=== PATIENT | female | born 1940 | race Caucasian/White ===

== ENCOUNTER 2018-02-14 14:51 | Outpatient (CLI) | payer MEDICARE, OTHER ==
[~2018-02-14 14:51] MED LIST: ALPR-624 PO; APIX5TAB3 PO; BUPR150T26 PO; CITA10TA9 PO; FURO-149 PO; GABA-530 PO; HYDR-565 PO; INSU100I25 SQ; IRBE150T51 PO; LEVO100T46 PO; METF500T PO; OXYB5TAB11 PO
[2018-02-14 15:15] LABS: CLARITY,URINE SLIGHTLY CLOUDY (Clear); COLOR,URINE STRAW (Yellow); GLUCOSE, URINE NEGATIVE (Neg); KETONES,URINE NEGATIVE (Neg); LEUKOCYTE ESTERASE ,URINE MODERATE (Neg); NITRITES, URINE NEGATIVE (Neg); OCCULT BLOOD,URINE NEGATIVE (Neg); PROTEIN,URINE NEGATIVE (Neg); UROBILINOGEN,URINE 0.2 E.U/dL (0.2-1.0)
[2018-02-14 15:16] LABS: UA COLLECTION TYPE NON-SPECIFIED
[2018-02-14 15:22] LABS: BACTERIA,URINE 4+ /HPF (Neg); MUCUS STRANDS NONE SEEN /LPF (Neg); RBC,URINE NONE SEEN /HPF (0-2); SQUAMOUS EPITHELIAL CELL,UR FEW /LPF (FEW); TRANSITIONAL EPI CELLS,URINE FEW /HPF; WBC CLUMPS,URINE MODERATE /HPF (NEGATIVE); WBC,URINE 20-30 /HPF (0-4)
== END 2018-02-14 23:59 | disposition home or self-care (01) ==
LOC: LAB SPEC 14:51
PROVIDERS: ATTEND Family Medicine
DX: E11.65 Type 2 diabetes mellitus with hyperglycemia (principal); N39.0 Urinary tract infection, site not specified; I11.0 Hypertensive heart disease with heart failure; I50.9 Heart failure, unspecified
CPT/HCPCS: 81001; 87077; 87088; 87186

== ENCOUNTER 2018-04-09 02:08 | Emergency (ER) | payer MEDICARE, OTHER ==
[~2018-04-09] VITALS: Ht 165.1 cm; Wt 86.4 kg
[2018-04-09 03:42] LABS: CLARITY,URINE CLEAR (Clear); COLOR,URINE YELLOW (Yellow); GLUCOSE, URINE >=1000 mg/dl (Neg); KETONES,URINE NEGATIVE (Neg); LEUKOCYTE ESTERASE ,URINE SMALL (Neg); NITRITES, URINE POSITIVE (Neg); OCCULT BLOOD,URINE TRACE-LYSED (Neg); PH,URINE 6.5 (4.8-8.0); PROTEIN,URINE NEGATIVE (Neg); UROBILINOGEN,URINE 0.2 E.U/dL (0.2-1.0)
[2018-04-09 03:48] LABS: UA COLLECTION TYPE NON-SPECIFIED
[2018-04-09 03:49] LABS: BACTERIA,URINE 4+ /HPF (Neg); SQUAMOUS EPITHELIAL CELL,UR FEW /LPF (FEW); WBC CLUMPS,URINE MANY /HPF (NEGATIVE); WBC,URINE TNTC /HPF (0-4)
[2018-04-09 03:50] LABS: RBC,URINE 0-2 /HPF (0-2)
[2018-04-09] MEDS ORDERED: CefTRIAXone/D5W-Rocephin 1gm 50 ML IV ONE (04:20)
[2018-04-09] MEDS ORDERED: AMOX-422 PO (04:28)
[2018-04-09] MEDS ORDERED: ondansetron/PF 4mg/2ml inj IV ONE (04:35)
[2018-04-09] MEDS ORDERED: morphine 4 MG/ML inj SYRINge IV ONE (04:35)
[2018-04-09 05:28] VITALS: BP 143/86
[2018-04-12] MEDS ORDERED: CEFP100T7 PO (00:29)
== END 2018-04-09 05:34 | disposition home or self-care (01) ==
LOC: ER 02:10
DX: T83.098A Other mechanical complication of other urinary catheter, initial encounter (principal); N39.0 Urinary tract infection, site not specified; I11.0 Hypertensive heart disease with heart failure; I50.9 Heart failure, unspecified; K21.9 Gastro-esophageal reflux disease without esophagitis; E11.9 Type 2 diabetes mellitus without complications; M19.90 Unspecified osteoarthritis, unspecified site; Z90.710 Acquired absence of both cervix and uterus; Z88.8 Allergy status to other drugs, medicaments and biological substances; Z88.6 Allergy status to analgesic agent; Z88.1 Allergy status to other antibiotic agents; Z79.899 Other long term (current) drug therapy; Y92.9 Unspecified place or not applicable
CPT/HCPCS: 51702; 81001; 87077; 87088; 87186; 96365; 96375; 99284; A4315; J0696; J2270; J2405

== ENCOUNTER 2018-06-26 14:40 | Inpatient (IN) | payer MEDICARE, OTHER ==
[~2018-06-26] VITALS: Ht 165.1 cm; Wt 100.0 kg
[~2018-06-26 14:40] MED LIST changes: +CEFP100T7 PO; +HYDR-4353 PO; -HYDR-565 PO
[2018-06-26] MEDS ORDERED: normal saline 1000ML IV soln IVB ONE (15:20)
[2018-06-26 15:55] LABS: BASOPHILS # (AUTO) 0.1 X10'3 (0-0.2); BASOPHILS % (AUTO) 0.4 % (0-1); EOSINOPHILS # (AUTO) 0.3 X10'3 (0-0.9); EOSINOPHILS % (AUTO) 1.9 % (0-6); HEMATOCRIT 56.7 % (35.0-45.0); LYMPHOCYTES # (AUTO) 1.1 X10'3 (1.1-4.8); LYMPHOCYTES % (AUTO) 6.6 % (21-51); MEAN PLATELET VOLUME 8.3 FL (7.4-10.4); MONOCYTES # (AUTO) 0.6 X10'3 (0-0.9); MONOCYTES % (AUTO) 3.7 % (2-12); NEUTROPHILS # (AUTO) 14.3 X10'3 (1.8-7.7); NEUTROPHILS % (AUTO) 87.4 % (42-75); PLATELET COUNT 401 X10'3 (140-440); WHITE BLOOD COUNT 16.3 X10'3 (4.5-11.0)
[2018-06-26 16:04] LABS: HEMOGLOBIN 17.2 g/dl (12.0-16.0); RED BLOOD COUNT 8.38 X10'6 (4.20-5.60)
[2018-06-26 16:06] LABS: MEAN CORPUSCULAR HEMOGLOBIN 20.5 PG (27.0-31.0); MEAN CORPUSCULAR HGB CONC 30.3 % (33.0-36.5); MEAN CORPUSCULAR VOLUME 67.7 FL (78-98); RED CELL DISTRIBUTION WIDTH 21.2 % (11.5-14.5)
[2018-06-26 16:17] LABS: ANISOCYTOSIS 3+; ELLIPTOCYTES 1+; MICROCYTOSIS 2+; PLATELET ESTIMATE NORMAL
[2018-06-26 16:18] LABS: ALANINE AMINOTRANSFERASE 27 U/L (12-78); ALBUMIN 3.2 G/DL (3.4-5.0); ALBUMIN/GLOBULIN RATIO 0.9 (1.1-1.5); ALKALINE PHOSPHATASE 101 IU/L (46-116); ANION GAP 7 (8-16); ASPARTATE AMINO TRANSFERASE 16 U/L (10-37); BILIRUBIN,TOTAL 0.5 MG/DL (0.1-1.0); BLOOD UREA NITROGEN 16 MG/DL (7-18); BUN/CREATININE RATIO 15.4 (6.6-38.0); CALCIUM 8.9 MG/DL (8.5-10.1); CHLORIDE 100 MMOL/L (99-107); CREATININE 1.04 MG/DL (0.40-0.90); ETHANOL < 0.010 GM/DL (0.0-0.010); GLUCOSE 157 MG/DL (70-104); POTASSIUM 4.1 MMOL/L (3.5-5.1); SODIUM 139 MMOL/L (135-145); SPHEROCYTES FEW; TOTAL CARBON DIOXIDE 32.1 MMOL/L (24-32); TOTAL PROTEIN 6.7 G/DL (6.4-8.2); eGFR 51 ML/MIN
[2018-06-26 16:48] LABS: CLARITY,URINE CLEAR (Clear); COLOR,URINE YELLOW (Yellow); GLUCOSE, URINE 100 mg/dl (Neg); KETONES,URINE NEGATIVE (Neg); LEUKOCYTE ESTERASE ,URINE TRACE (Neg); NITRITES, URINE NEGATIVE (Neg); OCCULT BLOOD,URINE LARGE (Neg); PROTEIN,URINE NEGATIVE (Neg); UROBILINOGEN,URINE 0.2 E.U/dL (0.2-1.0)
[2018-06-26 16:49] LABS: UA COLLECTION TYPE OTHER
[2018-06-26 16:53] LABS: BACTERIA,URINE NONE SEEN /HPF (Neg); MUCUS STRANDS NONE SEEN /LPF (Neg); SQUAMOUS EPITHELIAL CELL,UR NONE SEEN /LPF (FEW)
[2018-06-26 17:09] LABS: URINE AMPHETAMINE SCREEN NEGATIVE (Neg); URINE BARBITUATE SCREEN NEGATIVE (Neg); URINE BENZODIAZEPINES SCREEN POSITIVE (Neg); URINE CANNABINOID SCREEN NEGATIVE (Neg); URINE COCAINE SCREEN NEGATIVE (Neg); URINE METHADONE SCREEN NEGATIVE (Neg); URINE OPIATE SCREEN POSITIVE (Neg); URINE PHENCYCLIDINE SCREEN NEGATIVE (Neg)
[2018-06-26] MEDS ORDERED: ONDA8TAB9 PO (17:12)
[2018-06-26] MEDS ORDERED: GABA600T2 PO (17:12)
[2018-06-26] MEDS ORDERED: dextrose ORAL solution 15 GM/59 ML bottle PO PRN ×2 (19:05)
[2018-06-26] MEDS ORDERED: potassium Cl 20 mEq SR tablet PO PRN ×2 (19:05)
[2018-06-26] MEDS ORDERED: MESSAGE TO PHARMACY PO ONE (19:05)
[2018-06-26] MEDS ORDERED: acetaminophen 325mg tablet PO PRN (19:05)
[2018-06-26] MEDS ORDERED: glucagon, human recombinant 1mg kit SUBCUT PRN (19:05)
[2018-06-26] MEDS ORDERED: magnesium 1gm/100ml D5W IVPB 100 ML IV PRN (19:05)
[2018-06-26] MEDS ORDERED: magnesium 4gm in 100ml NS 100 ML IV PRN (19:05)
[2018-06-26] MEDS ORDERED: potassium Cl 40MEQ/NS 500ml 500 ML IV PRN ×2 (19:05)
[2018-06-26] MEDS ORDERED: dextrose 50%-water 50ml dispensing syringe IV PRN ×2 (19:05)
[2018-06-26] MEDS ORDERED: heparin, porcine 5000 units/ml vial SQ SCH (20:00)
[2018-06-26] MEDS: normal saline 1000ml 1,000 ML IV SCH (20:40)
[2018-06-26] MEDS: CefTRIAXone 2gm/D5W 50ml 50 ML IV SCH (20:41)
[2018-06-26] MEDS: apixaban 5mg tablet PO SCH (20:42)
[2018-06-26] MEDS: gabapentin 300mg capsule PO SCH (20:44)
[2018-06-26] MEDS: HYDROcodone/acetaminophen 5mg/325mg tablet PO PRN (20:45)
[2018-06-26 21:00] VITALS: BP 121/82
[2018-06-26] MEDS: insulin glargine (Lantus) pen - multi-dose SQ SCH (21:00)
[2018-06-26] MEDS: ALPRAZolam 0.5mg tablet PO SCH (21:41)
[2018-06-26] MEDS: temazepam 15mg capsule PO PRN (22:05)
[2018-06-27] MEDS: temazepam 15mg capsule PO PRN (00:04)
[2018-06-27] MEDS: HYDROcodone/acetaminophen 5mg/325mg tablet PO PRN ×3 (03:27→22:12)
[2018-06-27] MEDS: ondansetron/PF 4mg/2ml inj IV PRN ×2 (04:20→12:10)
[2018-06-27 06:00] VITALS: BP 141/76
[2018-06-27] MEDS: levoTHYROXINE 100mcg tablet PO SCH (07:34)
[2018-06-27] MEDS: pantoprazole 40mg Tablet.DR PO SCH (07:34)
[2018-06-27] MEDS: gabapentin 300mg capsule PO SCH ×2 (07:35→21:00)
[2018-06-27] MEDS: buPROPion 75mg tablet PO SCH ×2 (07:35→19:42)
[2018-06-27] MEDS: apixaban 5mg tablet PO SCH ×2 (07:35→19:42)
[2018-06-27] MEDS: ALPRAZolam 0.5mg tablet PO SCH ×2 (07:36→19:42)
[2018-06-27] MEDS: losartan 50mg tablet PO SCH (07:36)
[2018-06-27] MEDS: CefTRIAXone 2gm/D5W 50ml 50 ML IV SCH (07:41)
[2018-06-27 07:42] LABS: ALBUMIN 2.9 G/DL (3.4-5.0); ANION GAP 9 (8-16); BLOOD UREA NITROGEN 12 MG/DL (7-18); BUN/CREATININE RATIO 13.8 (6.6-38.0); CALCIUM 8.3 MG/DL (8.5-10.1); CHLORIDE 103 MMOL/L (99-107); CREATININE 0.87 MG/DL (0.40-0.90); GLUCOSE 211 MG/DL (70-104); MAGNESIUM 1.4 MG/DL (1.5-2.4); SODIUM 140 MMOL/L (135-145); TOTAL CARBON DIOXIDE 28.5 MMOL/L (24-32); eGFR 63 ML/MIN
[2018-06-27 07:48] LABS: HEMATOCRIT 52.5 % (35.0-45.0); HEMOGLOBIN 15.8 g/dl (12.0-16.0); MEAN CORPUSCULAR HEMOGLOBIN 20.5 PG (27.0-31.0); MEAN CORPUSCULAR HGB CONC 30.1 % (33.0-36.5); MEAN CORPUSCULAR VOLUME 68.2 FL (78-98); MEAN PLATELET VOLUME 8.5 FL (7.4-10.4); PLATELET COUNT 406 X10'3 (140-440); RED BLOOD COUNT 7.71 X10'6 (4.20-5.60); WHITE BLOOD COUNT 16.4 X10'3 (4.5-11.0)
[2018-06-27] MEDS: K and/or MAG REPLACEMENT MC SCH (08:00)
[2018-06-27 08:14] LABS: TOTAL CELLS COUNTED 100
[2018-06-27 08:15] LABS: ANISOCYTOSIS 3+; HYPOCHROMASIA 2+; MICROCYTOSIS 2+; PLATELET ESTIMATE NORMAL
[2018-06-27 08:16] LABS: ELLIPTOCYTES 1+; TOXIC GRANULATION 1+
[2018-06-27] MEDS: normal saline 1000ml 1,000 ML IV SCH (08:24)
[2018-06-27] MEDS: insulin Lispro (HumaLOG) vial - multi-dose SQ SCH ×3 (09:18→18:58)
[2018-06-27 10:00] VITALS: BP 133/69
[2018-06-27] MEDS: morphine 2 MG/ML inj. syringe IV PRN ×2 (12:09→16:45)
[2018-06-27] MEDS: magnesium Cl slow-release 64mg tablet PO PRN ×2 (12:10→21:05)
[2018-06-27 16:38] LABS: C DIFF ANTIGEN NEGATIVE (NEGATIVE); C DIFF SPECIMEN=DIARRHEA? ACCEPTABLE; C DIFFICILE TOXINS A&B NEGATIVE (Neg)
[2018-06-27 18:00] VITALS: BP 127/74
[2018-06-27] MEDS: insulin glargine (Lantus) pen - multi-dose SQ SCH (21:08)
[2018-06-27 21:30] VITALS: BP 136/76
[2018-06-28] MEDS: morphine 2 MG/ML inj. syringe IV PRN (00:17)
[2018-06-28] MEDS: ondansetron/PF 4mg/2ml inj IV PRN (00:18)
[2018-06-28] MEDS: normal saline 1000ml 1,000 ML IV SCH (01:08)
[2018-06-28] MEDS: HYDROcodone/acetaminophen 5mg/325mg tablet PO PRN ×3 (04:11→16:22)
[2018-06-28 06:00] VITALS: BP 152/77
[2018-06-28] MEDS: K and/or MAG REPLACEMENT MC SCH (08:00)
[2018-06-28] MEDS: nystatin 15 GM powder TP SCH ×3 (08:00→21:37)
[2018-06-28 08:06] LABS: ALBUMIN 2.8 G/DL (3.4-5.0); ANION GAP 8 (8-16); BLOOD UREA NITROGEN 6 MG/DL (7-18); BUN/CREATININE RATIO 7.1 (6.6-38.0); CHLORIDE 103 MMOL/L (99-107); CREATININE 0.85 MG/DL (0.40-0.90); GLUCOSE 162 MG/DL (70-104); MAGNESIUM 1.5 MG/DL (1.5-2.4); POTASSIUM 3.9 MMOL/L (3.5-5.1); SODIUM 139 MMOL/L (135-145); TOTAL CARBON DIOXIDE 28.1 MMOL/L (24-32); eGFR 64 ML/MIN
[2018-06-28 08:38] LABS: HEMOGLOBIN 15.1 g/dl (12.0-16.0)
[2018-06-28 08:59] LABS: MEAN CORPUSCULAR HGB CONC 29.9 % (33.0-36.5); MONOCYTES # (AUTO) 0.3 X10'3 (0-0.9)
[2018-06-28 09:04] LABS: BASOPHILS # (AUTO) 0.3 X10'3 (0-0.2); BASOPHILS % (AUTO) 1.6 % (0-1); EOSINOPHILS # (AUTO) 0.5 X10'3 (0-0.9); HEMATOCRIT 50.5 % (35.0-45.0); LYMPHOCYTES # (AUTO) 1.2 X10'3 (1.1-4.8); LYMPHOCYTES % (AUTO) 7.9 % (21-51); MEAN CORPUSCULAR HEMOGLOBIN 20.6 PG (27.0-31.0); MEAN CORPUSCULAR VOLUME 68.8 FL (78-98); MEAN PLATELET VOLUME 8.3 FL (7.4-10.4); MONOCYTES % (AUTO) 2.1 % (2-12); NEUTROPHILS # (AUTO) 13.3 X10'3 (1.8-7.7); NEUTROPHILS % (AUTO) 85.4 % (42-75); PLATELET COUNT 379 X10'3 (140-440); RED BLOOD COUNT 7.34 X10'6 (4.20-5.60); RED CELL DISTRIBUTION WIDTH 21.5 % (11.5-14.5); WHITE BLOOD COUNT 15.6 X10'3 (4.5-11.0)
[2018-06-28] MEDS: lactobacillus rhamnosus 10,000 MMU CELLS/CAPSULE PO SCH ×2 (09:11→21:20)
[2018-06-28] MEDS: losartan 50mg tablet PO SCH (09:11)
[2018-06-28] MEDS: levoTHYROXINE 100mcg tablet PO SCH (09:12)
[2018-06-28] MEDS: gabapentin 300mg capsule PO SCH ×2 (09:12→21:19)
[2018-06-28] MEDS: apixaban 5mg tablet PO SCH ×2 (09:12→21:20)
[2018-06-28] MEDS: buPROPion 75mg tablet PO SCH ×2 (09:12→21:20)
[2018-06-28] MEDS: ALPRAZolam 0.5mg tablet PO SCH ×2 (09:12→21:19)
[2018-06-28] MEDS: pantoprazole 40mg Tablet.DR PO SCH (09:14)
[2018-06-28] MEDS: insulin Lispro (HumaLOG) vial - multi-dose SQ SCH ×3 (09:54→18:55)
[2018-06-28 10:00] VITALS: BP 162/89
[2018-06-28 10:08] LABS: HYPOCHROMASIA 2+; LARGE PLATELETS FEW; PLATELET ESTIMATE NORMAL
[2018-06-28 10:09] LABS: ANISOCYTOSIS 3+; MICROCYTOSIS 2+; SPHEROCYTES FEW
[2018-06-28 10:10] LABS: ELLIPTOCYTES 1+; POLYCHROMASIA FEW; TEAR DROP CELLS FEW
[2018-06-28] MEDS: cefepime 1GM/NS ADD-VANTAGE 100 ML IV SCH ×3 (10:20→23:58)
[2018-06-28 18:00] VITALS: BP 114/66
[2018-06-28] MEDS: insulin glargine (Lantus) pen - multi-dose SQ SCH (21:28)
[2018-06-28] MEDS: temazepam 15mg capsule PO PRN (21:32)
[2018-06-28 22:00] VITALS: BP 111/74
[2018-06-29 06:00] VITALS: BP 159/78
[2018-06-29] MEDS: HYDROcodone/acetaminophen 5mg/325mg tablet PO PRN ×2 (06:15→12:13)
[2018-06-29 06:49] LABS: BASOPHILS # (AUTO) 0.1 X10'3 (0-0.2); BASOPHILS % (AUTO) 0.7 % (0-1); EOSINOPHILS # (AUTO) 0.5 X10'3 (0-0.9); EOSINOPHILS % (AUTO) 2.5 % (0-6); HEMATOCRIT 52.1 % (35.0-45.0); HEMOGLOBIN 15.5 g/dl (12.0-16.0); LYMPHOCYTES # (AUTO) 0.8 X10'3 (1.1-4.8); LYMPHOCYTES % (AUTO) 4.6 % (21-51); MEAN CORPUSCULAR HEMOGLOBIN 20.4 PG (27.0-31.0); MEAN CORPUSCULAR HGB CONC 29.8 % (33.0-36.5); MEAN CORPUSCULAR VOLUME 68.7 FL (78-98); MEAN PLATELET VOLUME 8.2 FL (7.4-10.4); MONOCYTES # (AUTO) 0.5 X10'3 (0-0.9); MONOCYTES % (AUTO) 2.6 % (2-12); NEUTROPHILS % (AUTO) 89.6 % (42-75); PLATELET COUNT 420 X10'3 (140-440); RED BLOOD COUNT 7.59 X10'6 (4.20-5.60); RED CELL DISTRIBUTION WIDTH 21.6 % (11.5-14.5); WHITE BLOOD COUNT 17.8 X10'3 (4.5-11.0)
[2018-06-29 07:23] LABS: ALBUMIN 2.7 G/DL (3.4-5.0); ANION GAP 10 (8-16); BLOOD UREA NITROGEN 6 MG/DL (7-18); BUN/CREATININE RATIO 6.2 (6.6-38.0); CALCIUM 8.4 MG/DL (8.5-10.1); CHLORIDE 104 MMOL/L (99-107); CREATININE 0.97 MG/DL (0.40-0.90); GLUCOSE 120 MG/DL (70-104); MAGNESIUM 1.4 MG/DL (1.5-2.4); POTASSIUM 3.8 MMOL/L (3.5-5.1); SODIUM 142 MMOL/L (135-145); TOTAL CARBON DIOXIDE 28.2 MMOL/L (24-32); eGFR 55 ML/MIN
[2018-06-29] MEDS: K and/or MAG REPLACEMENT MC SCH (07:47)
[2018-06-29] MEDS: buPROPion 75mg tablet PO SCH ×2 (07:52→20:55)
[2018-06-29] MEDS: pantoprazole 40mg Tablet.DR PO SCH (07:54)
[2018-06-29] MEDS: levoTHYROXINE 100mcg tablet PO SCH (07:54)
[2018-06-29] MEDS: losartan 50mg tablet PO SCH (07:54)
[2018-06-29] MEDS: ALPRAZolam 0.5mg tablet PO SCH ×2 (07:55→20:55)
[2018-06-29] MEDS: gabapentin 300mg capsule PO SCH ×2 (07:55→20:57)
[2018-06-29] MEDS: lactobacillus rhamnosus 10,000 MMU CELLS/CAPSULE PO SCH ×2 (07:55→20:56)
[2018-06-29] MEDS: apixaban 5mg tablet PO SCH ×2 (07:55→20:56)
[2018-06-29] MEDS: cefepime 1GM/NS ADD-VANTAGE 100 ML IV SCH (07:57)
[2018-06-29] MEDS: nystatin 15 GM powder TP SCH ×3 (08:07→21:00)
[2018-06-29] MEDS: insulin Lispro (HumaLOG) vial - multi-dose SQ SCH ×3 (08:38→18:59)
[2018-06-29] MEDS: magnesium Cl slow-release 64mg tablet PO PRN ×2 (08:42→12:13)
[2018-06-29 09:37] LABS: ANISOCYTOSIS 3+; LARGE PLATELETS FEW; MICROCYTOSIS 2+; PLATELET ESTIMATE NORMAL
[2018-06-29 10:00] VITALS: BP 106/52
[2018-06-29] MEDS: piperacillin/tazo 4.5gm/100ml 100 ML IV SCH (16:05)
[2018-06-29 18:30] VITALS: BP 145/84
[2018-06-29] MEDS: insulin glargine (Lantus) pen - multi-dose SQ SCH (20:54)
[2018-06-29] MEDS: temazepam 15mg capsule PO PRN (21:01)
[2018-06-29 22:06] VITALS: BP 150/86
[2018-06-30] MEDS: HYDROcodone/acetaminophen 5mg/325mg tablet PO PRN ×2 (04:29→08:35)
[2018-06-30 05:17] LABS: BASOPHILS # (AUTO) 0.1 X10'3 (0-0.2); BASOPHILS % (AUTO) 0.9 % (0-1); EOSINOPHILS # (AUTO) 0.4 X10'3 (0-0.9); EOSINOPHILS % (AUTO) 2.7 % (0-6); HEMOGLOBIN 15.7 g/dl (12.0-16.0); LYMPHOCYTES # (AUTO) 0.9 X10'3 (1.1-4.8); LYMPHOCYTES % (AUTO) 6.5 % (21-51); MEAN CORPUSCULAR HEMOGLOBIN 20.7 PG (27.0-31.0); MEAN CORPUSCULAR HGB CONC 30.2 % (33.0-36.5); MEAN CORPUSCULAR VOLUME 68.7 FL (78-98); MEAN PLATELET VOLUME 8.2 FL (7.4-10.4); MONOCYTES # (AUTO) 0.5 X10'3 (0-0.9); MONOCYTES % (AUTO) 3.7 % (2-12); NEUTROPHILS # (AUTO) 12.4 X10'3 (1.8-7.7); NEUTROPHILS % (AUTO) 86.2 % (42-75); PLATELET COUNT 365 X10'3 (140-440); RED BLOOD COUNT 7.58 X10'6 (4.20-5.60); RED CELL DISTRIBUTION WIDTH 22.1 % (11.5-14.5); WHITE BLOOD COUNT 14.4 X10'3 (4.5-11.0)
[2018-06-30 05:28] LABS: ALBUMIN 2.7 G/DL (3.4-5.0); ANION GAP 12 (8-16); BLOOD UREA NITROGEN 7 MG/DL (7-18); BUN/CREATININE RATIO 7.8 (6.6-38.0); CALCIUM 8.4 MG/DL (8.5-10.1); CHLORIDE 104 MMOL/L (99-107); GLUCOSE 144 MG/DL (70-104); MAGNESIUM 1.4 MG/DL (1.5-2.4); POTASSIUM 3.6 MMOL/L (3.5-5.1); SODIUM 142 MMOL/L (135-145); TOTAL CARBON DIOXIDE 26.2 MMOL/L (24-32); eGFR 60 ML/MIN
[2018-06-30 05:42] LABS: ANISOCYTOSIS 3+; LARGE PLATELETS FEW; PLATELET ESTIMATE NORMAL
[2018-06-30 05:43] LABS: MICROCYTOSIS 2+; SPHEROCYTES FEW
[2018-06-30 06:00] VITALS: BP 152/84
[2018-06-30] MEDS ORDERED: potassium Cl 20 mEq SR tablet PO PRN ×2 (07:05)
[2018-06-30] MEDS ORDERED: magnesium 4gm in 100ml NS 100 ML IV PRN (07:05)
[2018-06-30] MEDS ORDERED: magnesium 1gm/100ml D5W IVPB 100 ML IV PRN (07:05)
[2018-06-30] MEDS ORDERED: potassium Cl 40MEQ/NS 500ml 500 ML IV PRN ×2 (07:05)
[2018-06-30] MEDS: K and/or MAG REPLACEMENT MC SCH (08:00)
[2018-06-30] MEDS ORDERED: K and/or MAG REPLACEMENT MC SCH (08:00)
[2018-06-30] MEDS: ALPRAZolam 0.5mg tablet PO SCH (08:19)
[2018-06-30] MEDS: buPROPion 75mg tablet PO SCH (08:20)
[2018-06-30] MEDS: levoTHYROXINE 100mcg tablet PO SCH (08:21)
[2018-06-30] MEDS: gabapentin 300mg capsule PO SCH (08:22)
[2018-06-30] MEDS: apixaban 5mg tablet PO SCH (08:22)
[2018-06-30] MEDS: losartan 50mg tablet PO SCH (08:23)
[2018-06-30] MEDS: lactobacillus rhamnosus 10,000 MMU CELLS/CAPSULE PO SCH (08:23)
[2018-06-30] MEDS: piperacillin/tazo 4.5gm/100ml 100 ML IV SCH ×2 (08:24)
[2018-06-30] MEDS: pantoprazole 40mg Tablet.DR PO SCH (08:24)
[2018-06-30] MEDS: nystatin 15 GM powder TP SCH ×2 (08:24→12:43)
[2018-06-30] MEDS: magnesium Cl slow-release 64mg tablet PO PRN ×2 (08:34→13:50)
[2018-06-30] MEDS: insulin Lispro (HumaLOG) vial - multi-dose SQ SCH ×2 (09:21→13:47)
[2018-06-30 10:00] VITALS: BP 142/96
== END 2018-06-30 14:45 | DRG 698 ==
LOC: ER 14:41 → ED HOLD 19:04 → ORTHO 4S 20:19
PROVIDERS: ADMIT Internal Medicine; ATTEND Internal Medicine
PROC: 02HV33Z Insertion of Infusion Device into Superior Vena Cava, Percutaneous Approach (ICD-10-PCS; principal; 2018-06-29)
PROC: B548ZZA Ultrasonography of Superior Vena Cava, Guidance (ICD-10-PCS; 2018-06-29)
DX: T83.518A Infection and inflammatory reaction due to other urinary catheter, initial encounter (principal); G93.41 Metabolic encephalopathy; N17.9 Acute kidney failure, unspecified; N39.0 Urinary tract infection, site not specified; E11.9 Type 2 diabetes mellitus without complications; E03.9 Hypothyroidism, unspecified; E86.0 Dehydration; F03.90 Unspecified dementia, unspecified severity, without behavioral disturbance, psychotic disturbance, mood disturbance, and anxiety; I11.0 Hypertensive heart disease with heart failure; I50.9 Heart failure, unspecified; K21.9 Gastro-esophageal reflux disease without esophagitis; R32 Unspecified urinary incontinence; E83.42 Hypomagnesemia; B96.5 Pseudomonas (aeruginosa) (mallei) (pseudomallei) as the cause of diseases classified elsewhere; F32.9 Major depressive disorder, single episode, unspecified; Y84.6 Urinary catheterization as the cause of abnormal reaction of the patient, or of later complication, without mention of misadventure at the time of the procedure; F41.9 Anxiety disorder, unspecified; M19.90 Unspecified osteoarthritis, unspecified site; Z90.710 Acquired absence of both cervix and uterus; Z74.01 Bed confinement status; Z88.8 Allergy status to other drugs, medicaments and biological substances; Z88.1 Allergy status to other antibiotic agents; Z91.018 Allergy to other foods; Z79.4 Long term (current) use of insulin; Z79.01 Long term (current) use of anticoagulants; Z79.899 Other long term (current) drug therapy; Z79.84 Long term (current) use of oral hypoglycemic drugs; Z86.718 Personal history of other venous thrombosis and embolism; Z86.711 Personal history of pulmonary embolism; Z87.440 Personal history of urinary (tract) infections; Z86.73 Personal history of transient ischemic attack (TIA), and cerebral infarction without residual deficits; Z82.0 Family history of epilepsy and other diseases of the nervous system; Z82.49 Family history of ischemic heart disease and other diseases of the circulatory system; Z80.9 Family history of malignant neoplasm, unspecified; Z80.0 Family history of malignant neoplasm of digestive organs; Y92.89 Other specified places as the place of occurrence of the external cause
CPT/HCPCS: 36415; 36569; 70450; 71045; 76937; 80048; 80053; 80305; 80320; 81001; 82140; 82948; 83036; 83605; 83735; 85025; 87040; 87070; 87077; 87088; 87186; 87324; 87449; 93005; 96360; 96361; 97110; 97116; 97162; 97530; 99285; G0378; J0692; J0696; J1815; J2270; J2405; J2543; J7030

== ENCOUNTER 2018-07-16 09:00 | Emergency (ER) | payer MEDICARE, OTHER ==
[~2018-07-16] VITALS: Ht 165.1 cm; Wt 90.9 kg
[~2018-07-16 09:00] MED LIST changes: -CEFP100T7 PO; -CITA10TA9 PO; -GABA-530 PO; +GABA600T2 PO; -IRBE150T51 PO; -METF500T PO; +ONDA8TAB9 PO; -OXYB5TAB11 PO
[2018-07-16 10:38] LABS: BASOPHILS # (AUTO) 0.1 X10'3 (0-0.2); BASOPHILS % (AUTO) 0.5 % (0-1); EOSINOPHILS # (AUTO) 0.4 X10'3 (0-0.9); HEMOGLOBIN 16.9 g/dl (12.0-16.0); LYMPHOCYTES % (AUTO) 8.1 % (21-51); MONOCYTES # (AUTO) 0.4 X10'3 (0-0.9); MONOCYTES % (AUTO) 3.3 % (2-12); NEUTROPHILS # (AUTO) 10.2 X10'3 (1.8-7.7); NEUTROPHILS % (AUTO) 85.1 % (42-75)
[2018-07-16 10:42] LABS: ALANINE AMINOTRANSFERASE 21 U/L (12-78); ALBUMIN 3.2 G/DL (3.4-5.0); ALKALINE PHOSPHATASE 83 IU/L (46-116); ANION GAP 7 (8-16); ASPARTATE AMINO TRANSFERASE 19 U/L (10-37); BILIRUBIN,TOTAL 0.4 MG/DL (0.1-1.0); BLOOD UREA NITROGEN 9 MG/DL (7-18); BUN/CREATININE RATIO 9.8 (6.6-38.0); CALCIUM 8.6 MG/DL (8.5-10.1); CHLORIDE 101 MMOL/L (99-107); CREATININE 0.92 MG/DL (0.40-0.90); GLUCOSE 118 MG/DL (70-104); SODIUM 137 MMOL/L (135-145); TOTAL CARBON DIOXIDE 28.6 MMOL/L (24-32); TOTAL PROTEIN 6.5 G/DL (6.4-8.2); eGFR 59 ML/MIN
[2018-07-16 10:48] LABS: HEMATOCRIT 55.2 % (35.0-45.0); MEAN CORPUSCULAR HEMOGLOBIN 20.8 PG (27.0-31.0); MEAN CORPUSCULAR HGB CONC 30.5 % (33.0-36.5); MEAN CORPUSCULAR VOLUME 68.3 FL (78-98); MEAN PLATELET VOLUME 8.1 FL (7.4-10.4); PLATELET COUNT 393 X10'3 (140-440); RED BLOOD COUNT 8.09 X10'6 (4.20-5.60); RED CELL DISTRIBUTION WIDTH 21.8 % (11.5-14.5); WHITE BLOOD COUNT 11.6 X10'3 (4.5-11.0)
[2018-07-16 11:05] LABS: CLARITY,URINE CLEAR (Clear); COLOR,URINE STRAW (Yellow); GLUCOSE, URINE NEGATIVE (Neg); KETONES,URINE NEGATIVE (Neg); LEUKOCYTE ESTERASE ,URINE SMALL (Neg); NITRITES, URINE NEGATIVE (Neg); OCCULT BLOOD,URINE NEGATIVE (Neg); PH,URINE 7.5 (4.8-8.0); PROTEIN,URINE NEGATIVE (Neg); UROBILINOGEN,URINE 0.2 E.U/dL (0.2-1.0)
[2018-07-16 11:06] LABS: UA COLLECTION TYPE OTHER
[2018-07-16 11:13] LABS: BACTERIA,URINE FEW /HPF (Neg); MUCUS STRANDS FEW /LPF (Neg); RBC,URINE 0-2 /HPF (0-2); SQUAMOUS EPITHELIAL CELL,UR FEW /LPF (FEW); WBC,URINE 0-4 /HPF (0-4)
[2018-07-16 11:30] VITALS: BP 156/87
== END 2018-07-16 13:10 | disposition home or self-care (01) ==
LOC: ER 09:01
DX: N39.0 Urinary tract infection, site not specified (principal); I11.0 Hypertensive heart disease with heart failure; I50.9 Heart failure, unspecified; K21.9 Gastro-esophageal reflux disease without esophagitis; E11.9 Type 2 diabetes mellitus without complications; Z86.718 Personal history of other venous thrombosis and embolism; Z90.710 Acquired absence of both cervix and uterus; Z88.1 Allergy status to other antibiotic agents; Z88.8 Allergy status to other drugs, medicaments and biological substances; Z79.01 Long term (current) use of anticoagulants; Z79.4 Long term (current) use of insulin; Z79.899 Other long term (current) drug therapy
CPT/HCPCS: 36415; 80053; 81001; 85025; 87077; 87088; 87186; 99284

== ENCOUNTER 2019-01-19 14:57 | Emergency (ER) | payer MEDICARE ==
[~2019-01-19] VITALS: Ht 165.1 cm; Wt 88.6 kg
[~2019-01-19 14:57] MED LIST changes: +GABA600T13 PO; -GABA600T2 PO
[2019-01-19] MEDS ORDERED: morphine 2 MG/ML inj. syringe IV ONE (15:45)
[2019-01-19] MEDS ORDERED: ondansetron/PF 4mg/2ml inj IV ONE (15:45)
[2019-01-19] MEDS ORDERED: LORazepam 2 mg/ml vial IV ONE (15:45)
--- NOTE | 2019-01-19 15:58 | NUR ---
SPOKE WITH HOME HEALTH NURSE FROM [facility] ANJELICA CAMPOS. [phone]. ANJELICA STATES, PTS SON SAID CATHETER WASNT DRAINING AND URINE COMING OUT URETHRA. NURSE SAW PT TODAY AND WHEN SHE IRRIGATED CATH IT WOULD COME OUT OF URETHRA. TRIED TO REMOVE CATHETER TO CHANGE IT UNABLE TO REMOVE CATH. THINKS CATHETER MAYBE IN URETHRA. CATHETER WAS CHANGED LAST WEEK WITH NO PROBLEM.
--- NOTE | 2019-01-19 16:04 | NUR ---
DAUGHTER CHANELL GRAVES [phone]
[2019-01-19 16:31] LABS: BASOPHILS % (AUTO) 0.3 % (0-1); EOSINOPHILS # (AUTO) 0.5 X10'3 (0-0.9); EOSINOPHILS % (AUTO) 3.7 % (0-6); HEMATOCRIT 51.3 % (35.0-45.0); HEMOGLOBIN 15.8 g/dl (12.0-16.0); LYMPHOCYTES # (AUTO) 1.6 X10'3 (1.1-4.8); LYMPHOCYTES % (AUTO) 11.4 % (21-51); MEAN CORPUSCULAR HEMOGLOBIN 20.3 PG (27.0-31.0); MEAN CORPUSCULAR HGB CONC 30.8 g/dL (33.0-36.5); MEAN CORPUSCULAR VOLUME 65.8 FL (78-98); MEAN PLATELET VOLUME 8.5 FL (7.4-10.4); MONOCYTES # (AUTO) 0.5 X10'3 (0-0.9); MONOCYTES % (AUTO) 3.6 % (2-12); NEUTROPHILS # (AUTO) 11.7 X10'3 (1.8-7.7); PLATELET COUNT 457 X10'3 (140-440); RED CELL DISTRIBUTION WIDTH 22.3 % (11.5-14.5); WHITE BLOOD COUNT 14.4 X10'3 (4.5-11.0)
[2019-01-19 16:47] LABS: ALANINE AMINOTRANSFERASE 24 U/L (12-78); ALBUMIN 3.1 G/DL (3.4-5.0); ALKALINE PHOSPHATASE 97 IU/L (46-116); ANION GAP 5 (8-16); ASPARTATE AMINO TRANSFERASE 22 U/L (10-37); BILIRUBIN,TOTAL 0.6 MG/DL (0.1-1.0); BLOOD UREA NITROGEN 11 MG/DL (7-18); BUN/CREATININE RATIO 12.4 (6.6-38.0); CALCIUM 8.5 MG/DL (8.5-10.1); CHLORIDE 101 MMOL/L (99-107); CREATININE 0.89 MG/DL (0.40-0.90); GLUCOSE 202 MG/DL (70-104); POTASSIUM 3.9 MMOL/L (3.5-5.1); SODIUM 134 MMOL/L (135-145); TOTAL CARBON DIOXIDE 28.2 MMOL/L (24-32); TOTAL PROTEIN 6.3 G/DL (6.4-8.2); eGFR 61 ML/MIN
[2019-01-19 17:10] LABS: ANISOCYTOSIS 3+; ELLIPTOCYTES 1+; LARGE PLATELETS FEW; MICROCYTOSIS 2+; PLATELET ESTIMATE INCREASED; POLYCHROMASIA FEW
--- NOTE | 2019-01-19 17:18 | NUR ---
TRISTAN CATH PLACED 14FR COUDE. SCANT AMOUNT OF URINE RETURN. PT TOLERATED WELL.
[2019-01-19] MEDS ORDERED: SULF1TAB49 PO (17:38)
--- NOTE | 2019-01-19 17:56 | NUR ---
BG 179
--- NOTE | 2019-01-19 18:11 | NUR ---
PT DRANK 750ML OF WATER. TOLERATED WELL.
--- NOTE | 2019-01-19 18:17 | NUR ---
called the daughter jose,lucio is talking with her now
[2019-01-19 19:10] VITALS: BP 145/93
== END 2019-01-19 19:11 | disposition home or self-care (01) ==
LOC: ER 14:57
DX: T83.010A Breakdown (mechanical) of cystostomy catheter, initial encounter (principal); I11.0 Hypertensive heart disease with heart failure; I50.9 Heart failure, unspecified; K21.9 Gastro-esophageal reflux disease without esophagitis; E11.9 Type 2 diabetes mellitus without complications; M19.90 Unspecified osteoarthritis, unspecified site; Z86.718 Personal history of other venous thrombosis and embolism; Z90.710 Acquired absence of both cervix and uterus; Z88.8 Allergy status to other drugs, medicaments and biological substances; Z88.5 Allergy status to narcotic agent; Z88.6 Allergy status to analgesic agent; Z79.4 Long term (current) use of insulin; Y92.89 Other specified places as the place of occurrence of the external cause
CPT/HCPCS: 36415; 51702; 80053; 82948; 85025; 96374; 96375; 99285; J2060; J2270; J2405

== ENCOUNTER 2019-03-23 18:29 | Inpatient (IN) | payer MEDICARE, OTHER ==
[~2019-03-23] VITALS: Ht 157.5 cm; Wt 81.8 kg
[2019-03-23] MEDS ORDERED: acetaminophen 650mg rectal suppository RC STA (18:45)
[2019-03-23] MEDS ORDERED: GABA600T13 PO ×3 (18:45→23:38)
[2019-03-23] MEDS ORDERED: normal saline 1000ML IV soln IV ONE (18:45)
[2019-03-23] MEDS ORDERED: CefTRIAXone 2gm/D5W 50ml 50 ML IV ONE (18:45)
[2019-03-23] MEDS ORDERED: NITR50CA4 PO (18:52)
[2019-03-23] MEDS ORDERED: PANT20TA3 PO (18:52)
[2019-03-23] MEDS ORDERED: OXYB15TA PO (18:52)
[2019-03-23] MEDS ORDERED: LEVO112T5 PO (18:52)
[2019-03-23] MEDS ORDERED: ALPR1TAB2 PO (18:52)
[2019-03-23] MEDS ORDERED: QUET50TA PO (18:52)
[2019-03-23] MEDS ORDERED: TEMA7.5C2 PO (18:52)
[2019-03-23] MEDS ORDERED: BISA10SU60 RC (18:55)
[2019-03-23] MEDS ORDERED: ONDA4TAB6 PO (18:55)
[2019-03-23] MEDS ORDERED: CYCL5TAB PO (18:55)
[2019-03-23] MEDS ORDERED: ALBU18HF2 (18:57)
[2019-03-23 19:28] LABS: BASOPHILS # (AUTO) 0.1 X10'3 (0-0.2); EOSINOPHILS # (AUTO) 0.3 X10'3 (0-0.9); EOSINOPHILS % (AUTO) 2.2 % (0-6); HEMATOCRIT 56.5 % (35.0-45.0); HEMOGLOBIN 16.9 g/dl (12.0-16.0); LYMPHOCYTES # (AUTO) 1.4 X10'3 (1.1-4.8); LYMPHOCYTES % (AUTO) 9.4 % (21-51); MEAN CORPUSCULAR HEMOGLOBIN 19.9 PG (27.0-31.0); MEAN CORPUSCULAR HGB CONC 29.9 g/dL (33.0-36.5); MEAN CORPUSCULAR VOLUME 66.7 FL (78-98); MEAN PLATELET VOLUME 8.7 FL (7.4-10.4); MONOCYTES # (AUTO) 0.6 X10'3 (0-0.9); MONOCYTES % (AUTO) 4.1 % (2-12); NEUTROPHILS # (AUTO) 12.8 X10'3 (1.8-7.7); NEUTROPHILS % (AUTO) 83.3 % (42-75); PLATELET COUNT 355 X10'3 (140-440); RED BLOOD COUNT 8.48 X10'6 (4.20-5.60); RED CELL DISTRIBUTION WIDTH 22.7 % (11.5-14.5); WHITE BLOOD COUNT 15.4 X10'3 (4.5-11.0)
[2019-03-23 19:30] LABS: CLARITY,URINE CLOUDY (Clear); COLOR,URINE YELLOW (Yellow); GLUCOSE, URINE NEGATIVE (Neg); KETONES,URINE TRACE mg/dl (Neg); LEUKOCYTE ESTERASE ,URINE LARGE (Neg); NITRITES, URINE POSITIVE (Neg); OCCULT BLOOD,URINE LARGE (Neg); PROTEIN,URINE TRACE mg/dl (Neg); UROBILINOGEN,URINE 0.2 E.U/dL (0.2-1.0)
[2019-03-23 19:31] LABS: ALANINE AMINOTRANSFERASE 15 U/L (12-78); ALBUMIN 2.9 G/DL (3.4-5.0); ALBUMIN/GLOBULIN RATIO 0.9 (1.1-1.5); ALKALINE PHOSPHATASE 81 IU/L (46-116); ANION GAP 7 (8-16); ASPARTATE AMINO TRANSFERASE 23 U/L (10-37); BILIRUBIN,TOTAL 0.7 MG/DL (0.1-1.0); BLOOD UREA NITROGEN 9 MG/DL (7-18); BUN/CREATININE RATIO 9.4 (6.6-38.0); CALCIUM 8.1 MG/DL (8.5-10.1); CHLORIDE 101 MMOL/L (99-107); CREATININE 0.96 MG/DL (0.40-0.90); GLUCOSE 204 MG/DL (70-104); MAGNESIUM 1.3 MG/DL (1.5-2.4); SODIUM 138 MMOL/L (135-145); TOTAL CARBON DIOXIDE 30.4 MMOL/L (24-32); TOTAL PROTEIN 6.2 G/DL (6.4-8.2); eGFR 56 ML/MIN
[2019-03-23 19:33] LABS: UA COLLECTION TYPE STRAIGHT CATH
[2019-03-23 19:37] LABS: POTASSIUM 4.1 MMOL/L (3.5-5.1)
[2019-03-23 19:40] LABS: BACTERIA,URINE 1+ /HPF (Neg); MUCUS STRANDS NONE SEEN /LPF (Neg); RBC,URINE 50-100 /HPF (0-2); SQUAMOUS EPITHELIAL CELL,UR FEW /LPF (FEW); WBC,URINE TNTC /HPF (0-4)
[2019-03-23 19:43] LABS: PARTIAL THROMBOPLASTIN TIME 38 SECONDS (22-32)
[2019-03-23 19:48] LABS: LARGE PLATELETS FEW; PLATELET ESTIMATE NORMAL
[2019-03-23 19:49] LABS: ANISOCYTOSIS 3+; MICROCYTOSIS 2+; ROULEAUX 1+
--- NOTE | 2019-03-23 20:00 | NUR ---
Patient in room ORTHO 4007. I have received report from Jessica ESPINOSA and had the opportunity to ask questions and assume patient care. Addendum: 03/24/19 at 0631 by eSrene Oreilly RN Time @ 2200
[2019-03-23] MEDS ORDERED: cefepime 1GM/NS ADD-VANTAGE 100 ML IV ONE (20:15)
[2019-03-23] MEDS ORDERED: mag hydrox/Alum hydrox/simeth 30ml oral suspension PO PRN (20:25)
[2019-03-23] MEDS ORDERED: acetaminophen 325mg tablet PO PRN (20:25)
[2019-03-23] MEDS ORDERED: magnesium hydroxide 30ml (MOM) UD suspension PO PRN (20:25)
[2019-03-23] MEDS ORDERED: MESSAGE TO PHARMACY PO ONE (20:35)
[2019-03-23] MEDS ORDERED: glucagon, human recombinant 1mg kit SUBCUT PRN (20:35)
[2019-03-23] MEDS ORDERED: dextrose ORAL solution 15 GM/59 ML bottle PO PRN ×2 (20:35)
[2019-03-23] MEDS ORDERED: dextrose 50%-water 50ml dispensing syringe IV PRN ×2 (20:35)
[2019-03-23] MEDS ORDERED: magnesium 4gm in 100ml NS 100 ML IV PRN (20:35)
[2019-03-23 20:53] LABS: HEMOGLOBIN A1C 6.9 % (4.5-6.2)
[2019-03-23] MEDS ORDERED: QUEtiapine 25mg tablet PO SCH (21:00)
[2019-03-23] MEDS: apixaban 5mg tablet PO SCH (21:00)
[2019-03-23] MEDS: insulin glargine (Lantus) pen - multi-dose SQ SCH (21:00)
[2019-03-23] MEDS: normal saline 1000ml 1,000 ML IV SCH (21:32)
[2019-03-23] MEDS ORDERED: magnesium 2GM in 50ml NS 50 ML IV ONE (22:15)
[2019-03-23 22:30] VITALS: BP_SYST 138; BP_DIAS 42; BP_DIAS 94
[2019-03-24] MEDS: cefepime 1GM in D5W 50mL 50 ML IV SCH ×3 (00:30→16:21)
[2019-03-24 06:00] VITALS: BP 153/95
[2019-03-24 06:36] LABS: ALANINE AMINOTRANSFERASE 13 U/L (12-78); ALBUMIN 2.8 G/DL (3.4-5.0); ALBUMIN/GLOBULIN RATIO 0.8 (1.1-1.5); ALKALINE PHOSPHATASE 81 IU/L (46-116); ANION GAP 5 (8-16); ASPARTATE AMINO TRANSFERASE 15 U/L (10-37); BILIRUBIN,TOTAL 0.6 MG/DL (0.1-1.0); BLOOD UREA NITROGEN 7 MG/DL (7-18); BUN/CREATININE RATIO 9.2 (6.6-38.0); CALCIUM 8.1 MG/DL (8.5-10.1); CHLORIDE 106 MMOL/L (99-107); CREATININE 0.76 MG/DL (0.40-0.90); GLUCOSE 204 MG/DL (70-104); MAGNESIUM 2.2 MG/DL (1.5-2.4); POTASSIUM 3.6 MMOL/L (3.5-5.1); SODIUM 142 MMOL/L (135-145); TOTAL CARBON DIOXIDE 31.1 MMOL/L (24-32); TOTAL PROTEIN 6.1 G/DL (6.4-8.2); eGFR 73 ML/MIN
[2019-03-24 06:40] LABS: MEAN CORPUSCULAR HEMOGLOBIN 20.4 PG (27.0-31.0)
[2019-03-24 06:41] LABS: HEMATOCRIT 56.1 % (35.0-45.0); HEMOGLOBIN 16.9 g/dl (12.0-16.0); MEAN CORPUSCULAR HGB CONC 30.2 g/dL (33.0-36.5); MEAN CORPUSCULAR VOLUME 67.6 FL (78-98); MEAN PLATELET VOLUME 9.8 FL (7.4-10.4); PLATELET COUNT 371 X10'3 (140-440); RED CELL DISTRIBUTION WIDTH 22.3 % (11.5-14.5); WHITE BLOOD COUNT 14.3 X10'3 (4.5-11.0)
--- NOTE | 2019-03-24 06:45 | NUR ---
Patient in room ORTHO 4007. I have received report from JESÚS Brown and had the opportunity to ask questions and assume patient care. Addendum: 03/24/19 at 0658 by Joann Saenz RN RECEIVED REPORT FROM JESÚS SANDERS
--- NOTE | 2019-03-24 06:47 | NUR ---
Problems reprioritized. Patient report given, questions answered & plan of care reviewed with Joann RN.
[2019-03-24] MEDS: insulin Lispro (HumaLOG) vial - multi-dose SQ SCH ×2 (09:32→13:20)
[2019-03-24] MEDS: pantoprazole 40mg Tablet.DR PO SCH (09:53)
[2019-03-24] MEDS: apixaban 5mg tablet PO SCH ×2 (09:54→20:59)
[2019-03-24] MEDS: levoTHYROXINE 112mcg tablet PO SCH (09:54)
[2019-03-24] MEDS: nystatin 15 GM powder TP SCH ×3 (09:54→22:31)
[2019-03-24] MEDS: ondansetron/PF 4mg/2ml inj IV PRN ×2 (09:57→19:44)
[2019-03-24 10:00] VITALS: BP 130/91
[2019-03-24] MEDS: HYDROcodone/acetaminophen 5mg/325mg tablet PO PRN ×3 (13:22→23:53)
[2019-03-24 13:37] LABS: ANISOCYTOSIS 3+; MICROCYTOSIS 2+; PLATELET ESTIMATE NORMAL; ROULEAUX 2+
[2019-03-24 13:38] LABS: ELLIPTOCYTES FEW; LARGE PLATELETS FEW
[2019-03-24 18:00] VITALS: BP 140/72
--- NOTE | 2019-03-24 18:41 | NUR ---
Problems reprioritized. Patient report given, questions answered & plan of care reviewed with JESÚS Carrera.
[2019-03-24 22:00] VITALS: BP 144/82
[2019-03-24] MEDS: insulin glargine (Lantus) pen - multi-dose SQ SCH (22:30)
[2019-03-25] MEDS: cefepime 1GM in D5W 50mL 50 ML IV SCH ×3 (00:01→15:53)
[2019-03-25] MEDS: QUEtiapine 25mg tablet PO SCH ×2 (00:02→20:58)
[2019-03-25 05:53] LABS: EOSINOPHILS # (AUTO) 0.4 X10'3 (0-0.9); MEAN CORPUSCULAR HEMOGLOBIN 20.2 PG (27.0-31.0); MONOCYTES # (AUTO) 0.4 X10'3 (0-0.9)
[2019-03-25] MEDS: HYDROcodone/acetaminophen 5mg/325mg tablet PO PRN ×4 (05:53→21:13)
[2019-03-25 05:57] LABS: BASOPHILS # (AUTO) 0.6 X10'3 (0-0.2); BASOPHILS % (AUTO) 4.1 % (0-1); EOSINOPHILS % (AUTO) 2.8 % (0-6); HEMATOCRIT 53.3 % (35.0-45.0); HEMOGLOBIN 15.9 g/dl (12.0-16.0); LYMPHOCYTES # (AUTO) 1.2 X10'3 (1.1-4.8); LYMPHOCYTES % (AUTO) 7.9 % (21-51); MEAN CORPUSCULAR HGB CONC 29.9 g/dL (33.0-36.5); MEAN CORPUSCULAR VOLUME 67.7 FL (78-98); MEAN PLATELET VOLUME 8.6 FL (7.4-10.4); MONOCYTES % (AUTO) 2.6 % (2-12); NEUTROPHILS # (AUTO) 12.8 X10'3 (1.8-7.7); NEUTROPHILS % (AUTO) 82.6 % (42-75); PLATELET COUNT 343 X10'3 (140-440); RED BLOOD COUNT 7.87 X10'6 (4.20-5.60); RED CELL DISTRIBUTION WIDTH 22.5 % (11.5-14.5); WHITE BLOOD COUNT 15.5 X10'3 (4.5-11.0)
[2019-03-25 06:00] VITALS: BP 130/33
[2019-03-25 06:07] LABS: ALANINE AMINOTRANSFERASE 12 U/L (12-78); ALBUMIN 2.7 G/DL (3.4-5.0); ALBUMIN/GLOBULIN RATIO 0.9 (1.1-1.5); ALKALINE PHOSPHATASE 69 IU/L (46-116); ANION GAP 7 (8-16); ASPARTATE AMINO TRANSFERASE 10 U/L (10-37); BILIRUBIN,TOTAL 0.5 MG/DL (0.1-1.0); BLOOD UREA NITROGEN 7 MG/DL (7-18); BUN/CREATININE RATIO 8.6 (6.6-38.0); CALCIUM 7.7 MG/DL (8.5-10.1); CHLORIDE 109 MMOL/L (99-107); CREATININE 0.81 MG/DL (0.40-0.90); GLUCOSE 209 MG/DL (70-104); MAGNESIUM 1.7 MG/DL (1.5-2.4); POTASSIUM 3.5 MMOL/L (3.5-5.1); SODIUM 143 MMOL/L (135-145); TOTAL CARBON DIOXIDE 27.4 MMOL/L (24-32); TOTAL PROTEIN 5.8 G/DL (6.4-8.2); eGFR 68 ML/MIN
--- NOTE | 2019-03-25 06:24 | NUR ---
Patient in room ORTHO 4007. I have received report from Debi ESPINOSA and had the opportunity to ask questions and assume patient care.
[2019-03-25] MEDS: apixaban 5mg tablet PO SCH ×2 (07:31→19:13)
[2019-03-25] MEDS: pantoprazole 40mg Tablet.DR PO SCH (07:31)
[2019-03-25] MEDS: levoTHYROXINE 112mcg tablet PO SCH (07:32)
[2019-03-25] MEDS: nystatin 15 GM powder TP SCH ×3 (07:39→21:13)
[2019-03-25 08:32] LABS: ANISOCYTOSIS 3+; MICROCYTOSIS 2+; PLATELET ESTIMATE NORMAL
[2019-03-25 08:34] LABS: ELLIPTOCYTES 1+; SCHISTOCYTES FEW
[2019-03-25 08:35] LABS: POLYCHROMASIA FEW
[2019-03-25 08:36] LABS: ROULEAUX 1+
[2019-03-25] MEDS: insulin Lispro (HumaLOG) vial - multi-dose SQ SCH ×3 (09:28→19:08)
[2019-03-25 09:47] LABS: C DIFF ANTIGEN NEGATIVE (NEGATIVE); C DIFF SPECIMEN=DIARRHEA? ACCEPTABLE; C DIFFICILE TOXINS A&B NEGATIVE (Neg)
[2019-03-25 10:00] VITALS: BP 138/79
[2019-03-25] MEDS: normal saline 1000ml 1,000 ML IV SCH (10:44)
--- NOTE | 2019-03-25 16:50 | NUR ---
paged hospitalist [phone] records from [facility] arrived they are in the front of patients cart and patient has positive MRSA nasal swab, will continue to monitor
--- NOTE | 2019-03-25 17:53 | NUR ---
Daughter called and was concerned about mother going to rehab after hospital stay to become stronger, daughter was referred to talk with case management to set up a discharge plan.
[2019-03-25 18:00] VITALS: BP 144/83
--- NOTE | 2019-03-25 18:16 | NUR ---
Problems reprioritized. Patient report given, questions answered & plan of care reviewed with Brittany Bender RN.
[2019-03-25] MEDS: lactobacillus rhamnosus 10,000 MMU CELLS/CAPSULE PO SCH (19:15)
[2019-03-25] MEDS: ondansetron/PF 4mg/2ml inj IV PRN (19:15)
[2019-03-25] MEDS ORDERED: QUEtiapine 25mg tablet PO SCH (21:00)
[2019-03-25] MEDS: insulin glargine (Lantus) pen - multi-dose SQ SCH (21:11)
[2019-03-25 22:00] VITALS: BP 147/73
[2019-03-26] MEDS: cefepime 1GM in D5W 50mL 50 ML IV SCH ×3 (00:18→16:40)
[2019-03-26] MEDS: HYDROcodone/acetaminophen 5mg/325mg tablet PO PRN ×4 (05:19→20:52)
[2019-03-26 05:30] LABS: BASOPHILS # (AUTO) 0.1 X10'3 (0-0.2); BASOPHILS % (AUTO) 0.5 % (0-1); EOSINOPHILS # (AUTO) 0.3 X10'3 (0-0.9); EOSINOPHILS % (AUTO) 1.7 % (0-6); HEMATOCRIT 51.9 % (35.0-45.0); HEMOGLOBIN 15.7 g/dl (12.0-16.0); LYMPHOCYTES # (AUTO) 0.8 X10'3 (1.1-4.8); LYMPHOCYTES % (AUTO) 4.5 % (21-51); MEAN CORPUSCULAR HEMOGLOBIN 20.1 PG (27.0-31.0); MEAN CORPUSCULAR HGB CONC 30.2 g/dL (33.0-36.5); MEAN CORPUSCULAR VOLUME 66.6 FL (78-98); MEAN PLATELET VOLUME 8.3 FL (7.4-10.4); MONOCYTES # (AUTO) 0.5 X10'3 (0-0.9); MONOCYTES % (AUTO) 2.7 % (2-12); NEUTROPHILS # (AUTO) 16.8 X10'3 (1.8-7.7); NEUTROPHILS % (AUTO) 90.6 % (42-75); PLATELET COUNT 391 X10'3 (140-440); RED BLOOD COUNT 7.79 X10'6 (4.20-5.60); RED CELL DISTRIBUTION WIDTH 22.1 % (11.5-14.5); WHITE BLOOD COUNT 18.6 X10'3 (4.5-11.0)
[2019-03-26 05:51] LABS: ALANINE AMINOTRANSFERASE 10 U/L (12-78); ALBUMIN 2.8 G/DL (3.4-5.0); ALBUMIN/GLOBULIN RATIO 0.9 (1.1-1.5); ALKALINE PHOSPHATASE 77 IU/L (46-116); ANION GAP 7 (8-16); ASPARTATE AMINO TRANSFERASE 11 U/L (10-37); BILIRUBIN,TOTAL 0.7 MG/DL (0.1-1.0); BLOOD UREA NITROGEN 5 MG/DL (7-18); BUN/CREATININE RATIO 6.7 (6.6-38.0); CALCIUM 8.4 MG/DL (8.5-10.1); CHLORIDE 108 MMOL/L (99-107); CREATININE 0.75 MG/DL (0.40-0.90); GLUCOSE 159 MG/DL (70-104); MAGNESIUM 1.5 MG/DL (1.5-2.4); POTASSIUM 3.5 MMOL/L (3.5-5.1); SODIUM 141 MMOL/L (135-145); TOTAL CARBON DIOXIDE 26.5 MMOL/L (24-32); eGFR 74 ML/MIN
[2019-03-26] MEDS: ondansetron/PF 4mg/2ml inj IV PRN (05:55)
--- NOTE | 2019-03-26 06:25 | NUR ---
Problems reprioritized. Patient report given, questions answered & plan of care reviewed with JESÚS Sifuentes.
--- NOTE | 2019-03-26 06:28 | NUR ---
Patient in room ORTHO 4007. I have received report from Brittany Bender RN and had the opportunity to ask questions and assume patient care.
[2019-03-26 06:36] VITALS: BP 168/85
[2019-03-26 06:48] LABS: ANISOCYTOSIS 3+; HYPOCHROMASIA 1+; MICROCYTOSIS 2+; PLATELET ESTIMATE NORMAL; POLYCHROMASIA 1+
[2019-03-26 06:49] LABS: ELLIPTOCYTES 1+
[2019-03-26] MEDS: apixaban 5mg tablet PO SCH ×2 (07:11→20:49)
[2019-03-26] MEDS: pantoprazole 40mg Tablet.DR PO SCH (07:11)
[2019-03-26] MEDS: levoTHYROXINE 112mcg tablet PO SCH (07:11)
[2019-03-26] MEDS: lactobacillus rhamnosus 10,000 MMU CELLS/CAPSULE PO SCH ×2 (07:11→20:49)
[2019-03-26] MEDS: nystatin 15 GM powder TP SCH ×3 (07:22→21:06)
[2019-03-26] MEDS: insulin Lispro (HumaLOG) vial - multi-dose SQ SCH ×3 (09:18→19:31)
[2019-03-26 09:29] VITALS: BP 151/74
--- NOTE | 2019-03-26 10:07 | NUR ---
Problems reprioritized. Patient report given, questions answered & plan of care reviewed with Lindy ESPINOSA.
--- NOTE | 2019-03-26 10:07 | NUR ---
Patient in room ORTHO 4007. I have received report from Bear ESPINOSA and had the opportunity to ask questions and assume patient care.
[2019-03-26 18:00] VITALS: BP 124/71
--- NOTE | 2019-03-26 18:40 | NUR ---
Problems reprioritized. Patient report given, questions answered & plan of care reviewed with Brittany Botello RN.
[2019-03-26] MEDS: QUEtiapine 25mg tablet PO SCH (20:49)
[2019-03-26] MEDS: insulin glargine (Lantus) pen - multi-dose SQ SCH (21:03)
[2019-03-26 22:00] VITALS: BP 154/81
[2019-03-27] MEDS: cefepime 1GM in D5W 50mL 50 ML IV SCH ×4 (00:14→23:09)
[2019-03-27] MEDS: normal saline 1000ml 1,000 ML IV SCH ×3 (00:49→21:13)
[2019-03-27] MEDS: HYDROcodone/acetaminophen 5mg/325mg tablet PO PRN ×4 (05:36→21:32)
[2019-03-27 06:00] VITALS: BP 187/95
--- NOTE | 2019-03-27 06:04 | NUR ---
Problems reprioritized. Patient report given, questions answered & plan of care reviewed with JESÚS Funes.
--- NOTE | 2019-03-27 06:11 | NUR ---
RECEIVED REPORT FROM JESÚS ESTRADA
[2019-03-27 06:14] LABS: EOSINOPHILS # (AUTO) 0.5 X10'3 (0-0.9); MEAN CORPUSCULAR VOLUME 67.3 FL (78-98)
[2019-03-27 06:17] LABS: BASOPHILS # (AUTO) 0.5 X10'3 (0-0.2); BASOPHILS % (AUTO) 3.2 % (0-1); EOSINOPHILS % (AUTO) 3.2 % (0-6); HEMATOCRIT 53.2 % (35.0-45.0); HEMOGLOBIN 15.7 g/dl (12.0-16.0); LYMPHOCYTES % (AUTO) 5.9 % (21-51); MEAN CORPUSCULAR HEMOGLOBIN 19.9 PG (27.0-31.0); MEAN CORPUSCULAR HGB CONC 29.6 g/dL (33.0-36.5); MONOCYTES # (AUTO) 0.5 X10'3 (0-0.9); MONOCYTES % (AUTO) 2.8 % (2-12); NEUTROPHILS # (AUTO) 14.3 X10'3 (1.8-7.7); NEUTROPHILS % (AUTO) 84.9 % (42-75); PLATELET COUNT 420 X10'3 (140-440); RED BLOOD COUNT 7.91 X10'6 (4.20-5.60); RED CELL DISTRIBUTION WIDTH 22.8 % (11.5-14.5); WHITE BLOOD COUNT 16.9 X10'3 (4.5-11.0)
[2019-03-27 06:19] LABS: ALANINE AMINOTRANSFERASE 9 U/L (12-78); ALBUMIN 2.6 G/DL (3.4-5.0); ALBUMIN/GLOBULIN RATIO 0.8 (1.1-1.5); ALKALINE PHOSPHATASE 75 IU/L (46-116); ANION GAP 9 (8-16); ASPARTATE AMINO TRANSFERASE 17 U/L (10-37); BILIRUBIN,TOTAL 0.6 MG/DL (0.1-1.0); BLOOD UREA NITROGEN 7 MG/DL (7-18); BUN/CREATININE RATIO 8.4 (6.6-38.0); CALCIUM 7.9 MG/DL (8.5-10.1); CHLORIDE 109 MMOL/L (99-107); CREATININE 0.83 MG/DL (0.40-0.90); GLUCOSE 136 MG/DL (70-104); MAGNESIUM 1.5 MG/DL (1.5-2.4); POTASSIUM 3.2 MMOL/L (3.5-5.1); SODIUM 144 MMOL/L (135-145); TOTAL CARBON DIOXIDE 26.1 MMOL/L (24-32); TOTAL PROTEIN 5.9 G/DL (6.4-8.2); eGFR 66 ML/MIN
[2019-03-27] MEDS: VANCOmycin 1250MG/NS 250ml Bag 250 ML IV SCH ×2 (06:44→18:51)
[2019-03-27] MEDS ORDERED: VANCOmycin 1250MG/NS 250ml Bag 250 ML IV SCH ×2 (07:00→08:00)
[2019-03-27 07:13] LABS: ANISOCYTOSIS 3+; MICROCYTOSIS 2+; PLATELET ESTIMATE NORMAL
[2019-03-27] MEDS: levoTHYROXINE 112mcg tablet PO SCH (08:08)
[2019-03-27] MEDS: pantoprazole 40mg Tablet.DR PO SCH (08:09)
[2019-03-27] MEDS: lactobacillus rhamnosus 10,000 MMU CELLS/CAPSULE PO SCH ×2 (08:09→19:33)
[2019-03-27] MEDS: apixaban 5mg tablet PO SCH ×2 (08:09→19:33)
[2019-03-27] MEDS: nystatin 15 GM powder TP SCH ×3 (08:12→21:07)
--- NOTE | 2019-03-27 08:16 | NUR ---
pt bg is 158, the stat strip machine processed bg but the bg seemed to not save pts bg value in machine, continue to monitor
[2019-03-27] MEDS: insulin Lispro (HumaLOG) vial - multi-dose SQ SCH ×3 (08:20→19:41)
[2019-03-27] MEDS ORDERED: magnesium 4gm in 100ml NS 100 ML IV PRN (08:50)
[2019-03-27] MEDS ORDERED: magnesium Cl slow-release 64mg tablet PO PRN (08:50)
[2019-03-27] MEDS ORDERED: potassium Cl 20 mEq SR tablet PO PRN (08:50)
[2019-03-27] MEDS ORDERED: potassium CL 10mEq/100ml bag 100 ML IV PRN (08:50)
[2019-03-27] MEDS: potassium Cl 20 mEq SR tablet PO PRN ×3 (09:00→17:29)
[2019-03-27 10:00] VITALS: BP 161/78
[2019-03-27] MEDS: ondansetron/PF 4mg/2ml inj IV PRN ×2 (10:45→17:25)
--- NOTE | 2019-03-27 13:18 | NUR ---
SCANNER ON COMPUTER NOT WORKING, CHECKED MED PRIOR TO ADMIN, CONTINUE TO MONITOR
[2019-03-27 18:00] VITALS: BP 136/88
--- NOTE | 2019-03-27 18:08 | NUR ---
gave report to matthew fonseca
--- NOTE | 2019-03-27 18:30 | NUR ---
Patient in room ORTHO 4007. I have received report from Shantel Velasco and had the opportunity to ask questions and assume patient care.
[2019-03-27] MEDS ORDERED: oxybutynin 5mg tablet PO SCH (21:00)
[2019-03-27] MEDS: QUEtiapine 25mg tablet PO SCH (21:04)
[2019-03-27] MEDS: insulin glargine (Lantus) pen - multi-dose SQ SCH (21:07)
[2019-03-27 22:00] VITALS: BP 155/80
[2019-03-27] MEDS: oxybutynin 5mg tablet PO SCH (22:23)
[2019-03-28] MEDS: HYDROcodone/acetaminophen 10/325mg tab PO PRN ×4 (04:22→22:12)
[2019-03-28 06:00] VITALS: BP 161/87
--- NOTE | 2019-03-28 06:08 | NUR ---
received report from matthew fonseca
[2019-03-28 06:25] LABS: EOSINOPHILS # (AUTO) 0.5 X10'3 (0-0.9); MONOCYTES # (AUTO) 0.6 X10'3 (0-0.9)
--- NOTE | 2019-03-28 06:26 | NUR ---
Problems reprioritized. Patient report given, questions answered & plan of care reviewed with oncoming RN.
[2019-03-28 06:31] LABS: BASOPHILS # (AUTO) 0.6 X10'3 (0-0.2); BASOPHILS % (AUTO) 3.8 % (0-1); EOSINOPHILS % (AUTO) 2.9 % (0-6); HEMATOCRIT 52.6 % (35.0-45.0); HEMOGLOBIN 15.7 g/dl (12.0-16.0); LYMPHOCYTES # (AUTO) 1.1 X10'3 (1.1-4.8); LYMPHOCYTES % (AUTO) 6.6 % (21-51); MEAN CORPUSCULAR HEMOGLOBIN 20.1 PG (27.0-31.0); MEAN CORPUSCULAR HGB CONC 29.9 g/dL (33.0-36.5); MEAN CORPUSCULAR VOLUME 67.4 FL (78-98); MEAN PLATELET VOLUME 8.8 FL (7.4-10.4); MONOCYTES % (AUTO) 3.5 % (2-12); NEUTROPHILS # (AUTO) 13.5 X10'3 (1.8-7.7); NEUTROPHILS % (AUTO) 83.2 % (42-75); PLATELET COUNT 438 X10'3 (140-440); RED BLOOD COUNT 7.81 X10'6 (4.20-5.60); RED CELL DISTRIBUTION WIDTH 23.2 % (11.5-14.5); WHITE BLOOD COUNT 16.3 X10'3 (4.5-11.0)
[2019-03-28] MEDS: VANCOmycin 1250MG/NS 250ml Bag 250 ML IV SCH (06:32)
[2019-03-28 06:47] LABS: ALANINE AMINOTRANSFERASE 6 U/L (12-78); ALBUMIN 2.6 G/DL (3.4-5.0); ALBUMIN/GLOBULIN RATIO 0.8 (1.1-1.5); ALKALINE PHOSPHATASE 76 IU/L (46-116); ANION GAP 7 (8-16); ASPARTATE AMINO TRANSFERASE 14 U/L (10-37); BILIRUBIN,TOTAL 0.6 MG/DL (0.1-1.0); BLOOD UREA NITROGEN 9 MG/DL (7-18); BUN/CREATININE RATIO 9.4 (6.6-38.0); CALCIUM 7.7 MG/DL (8.5-10.1); CHLORIDE 112 MMOL/L (99-107); CREATININE 0.96 MG/DL (0.40-0.90); GLUCOSE 134 MG/DL (70-104); POTASSIUM 3.8 MMOL/L (3.5-5.1); SODIUM 144 MMOL/L (135-145); TOTAL CARBON DIOXIDE 25.2 MMOL/L (24-32); eGFR 56 ML/MIN
[2019-03-28 07:29] LABS: ANISOCYTOSIS 3+; MICROCYTOSIS 2+; PLATELET ESTIMATE NORMAL; POIKILOCYTOSIS 1+
[2019-03-28] MEDS: ondansetron/PF 4mg/2ml inj IV PRN ×2 (07:41→15:58)
[2019-03-28] MEDS: pantoprazole 40mg Tablet.DR PO SCH (07:44)
[2019-03-28] MEDS: apixaban 5mg tablet PO SCH ×2 (07:44→19:39)
[2019-03-28] MEDS: levoTHYROXINE 112mcg tablet PO SCH (07:44)
[2019-03-28] MEDS: oxybutynin 5mg tablet PO SCH ×3 (07:45→20:01)
[2019-03-28] MEDS: lactobacillus rhamnosus 10,000 MMU CELLS/CAPSULE PO SCH ×2 (07:45→19:39)
[2019-03-28] MEDS: cefepime 1GM in D5W 50mL 50 ML IV SCH ×3 (07:48→23:17)
[2019-03-28] MEDS: nystatin 15 GM powder TP SCH ×3 (07:48→21:43)
[2019-03-28] MEDS: insulin Lispro (HumaLOG) vial - multi-dose SQ SCH ×3 (08:46→19:58)
[2019-03-28 10:00] VITALS: BP 134/70
[2019-03-28] MEDS: normal saline 1000ml 1,000 ML IV SCH (14:12)
--- NOTE | 2019-03-28 16:08 | NUR ---
HOSPITALIST OKAYED TO ADMIN PAIN PILL SLIGHTLY EARLY BECAUSE OF PTS ELEVATED PAIN LEVEL, CONTINUE TO MONITOR PT
[2019-03-28 18:00] VITALS: BP 142/65
--- NOTE | 2019-03-28 18:15 | NUR ---
Patient in room ORTHO 4007. I have received report from Shantel ESPINOSA and had the opportunity to ask questions and assume patient care.
--- NOTE | 2019-03-28 18:20 | NUR ---
GAVE REPORT TO JESÚS SANDERS
[2019-03-28] MEDS ORDERED: VANCOMYCIN LEVEL IV ONE (18:30)
[2019-03-28] MEDS: QUEtiapine 25mg tablet PO SCH (20:01)
[2019-03-28] MEDS: insulin glargine (Lantus) pen - multi-dose SQ SCH (21:40)
[2019-03-28 22:00] VITALS: BP 156/73
[2019-03-29] MEDS: HYDROcodone/acetaminophen 10/325mg tab PO PRN ×3 (03:58→23:22)
[2019-03-29] MEDS: normal saline 1000ml 1,000 ML IV SCH ×2 (03:58→19:10)
[2019-03-29 06:00] VITALS: BP 154/79
--- NOTE | 2019-03-29 06:32 | NUR ---
Problems reprioritized. Patient report given, questions answered & plan of care reviewed with Eli ESPINOSA.
--- NOTE | 2019-03-29 06:45 | NUR ---
Received report from Serene ESPINOSA
[2019-03-29] MEDS: cefepime 1GM in D5W 50mL 50 ML IV SCH ×3 (07:38→23:21)
[2019-03-29] MEDS: nystatin 15 GM powder TP SCH ×3 (07:38→21:08)
[2019-03-29] MEDS: apixaban 5mg tablet PO SCH ×2 (07:38→19:10)
[2019-03-29] MEDS: pantoprazole 40mg Tablet.DR PO SCH (07:38)
[2019-03-29] MEDS: oxybutynin 5mg tablet PO SCH ×3 (07:38→20:59)
[2019-03-29] MEDS: lactobacillus rhamnosus 10,000 MMU CELLS/CAPSULE PO SCH ×2 (07:38→19:10)
[2019-03-29] MEDS: levoTHYROXINE 112mcg tablet PO SCH (07:38)
[2019-03-29 08:59] LABS: BASOPHILS # (AUTO) 0.1 X10'3 (0-0.2); BASOPHILS % (AUTO) 0.5 % (0-1); EOSINOPHILS # (AUTO) 0.3 X10'3 (0-0.9); EOSINOPHILS % (AUTO) 1.4 % (0-6); HEMATOCRIT 51.8 % (35.0-45.0); HEMOGLOBIN 15.5 g/dl (12.0-16.0); LYMPHOCYTES # (AUTO) 0.5 X10'3 (1.1-4.8); LYMPHOCYTES % (AUTO) 2.6 % (21-51); MEAN CORPUSCULAR HEMOGLOBIN 20.1 PG (27.0-31.0); MEAN CORPUSCULAR VOLUME 66.8 FL (78-98); MEAN PLATELET VOLUME 8.1 FL (7.4-10.4); MONOCYTES # (AUTO) 0.7 X10'3 (0-0.9); MONOCYTES % (AUTO) 3.7 % (2-12); NEUTROPHILS # (AUTO) 17.4 X10'3 (1.8-7.7); NEUTROPHILS % (AUTO) 91.8 % (42-75); PLATELET COUNT 467 X10'3 (140-440); RED BLOOD COUNT 7.75 X10'6 (4.20-5.60); RED CELL DISTRIBUTION WIDTH 22.3 % (11.5-14.5)
[2019-03-29 09:09] LABS: ALANINE AMINOTRANSFERASE 10 U/L (12-78); ALBUMIN 2.8 G/DL (3.4-5.0); ALBUMIN/GLOBULIN RATIO 0.8 (1.1-1.5); ALKALINE PHOSPHATASE 75 IU/L (46-116); ANION GAP 8 (8-16); ASPARTATE AMINO TRANSFERASE 8 U/L (10-37); BILIRUBIN,TOTAL 0.8 MG/DL (0.1-1.0); BLOOD UREA NITROGEN 8 MG/DL (7-18); BUN/CREATININE RATIO 9.9 (6.6-38.0); CALCIUM 7.6 MG/DL (8.5-10.1); CHLORIDE 108 MMOL/L (99-107); CREATININE 0.81 MG/DL (0.40-0.90); GLUCOSE 130 MG/DL (70-104); POTASSIUM 3.5 MMOL/L (3.5-5.1); SODIUM 140 MMOL/L (135-145); TOTAL CARBON DIOXIDE 24.1 MMOL/L (24-32); TOTAL PROTEIN 6.2 G/DL (6.4-8.2); eGFR 68 ML/MIN
[2019-03-29 10:37] LABS: ANISOCYTOSIS 3+; LARGE PLATELETS FEW; MICROCYTOSIS 2+; PLATELET ESTIMATE INCREASED
[2019-03-29 10:42] LABS: NUCLEATED RED BLOOD CELLS 2 /100WBC (0-0); TOTAL CELLS COUNTED 100
[2019-03-29 10:48] VITALS: BP 123/62
--- NOTE | 2019-03-29 13:11 | NUR ---
refused blood glucose Addendum: 03/29/19 at 1312 by Eli Mercado RN Amended: Links added. Addendum: 03/29/19 at 1822 by Eli Mercado RN wrong patient
[2019-03-29] MEDS: insulin Lispro (HumaLOG) vial - multi-dose SQ SCH (14:45)
--- NOTE | 2019-03-29 15:58 | NUR ---
Initial: Pt admit w/ metabolic encephalopathy AOx3 and UTI. PO 0-25% meals past 5 days. Pt seen by ALEX and reports reflux following PO; pt was agreeable to Chocolate Glucerna TIDWM and is receiving protonix. Pt is aware pending MD verification prior to sending w/ meals. LBM large 03/27 per EMR. Will continue to monitor. Rec: 1. continue carb controlled diet 2. chocolate Glucerna TIDWM; pending MD verification prior to sending on trays 3. wt per rx Addendum: 03/29/19 at [address] Amended: Links added.
[2019-03-29] MEDS ORDERED: ALPRAZolam 0.5mg tablet PO PRN (16:05)
[2019-03-29 18:00] VITALS: BP 155/76
[2019-03-29] MEDS ORDERED: NUT.TX.GLUC.INTOLER,LAC-FR,SOY (GLUCERNA) 237 ML PO SCH (18:00)
--- NOTE | 2019-03-29 18:25 | NUR ---
Patient in room ORTHO 4007. I have received report from Eli ESPINOSA and had the opportunity to ask questions and assume patient care.
[2019-03-29] MEDS: QUEtiapine 25mg tablet PO SCH (20:59)
[2019-03-29] MEDS: insulin glargine (Lantus) pen - multi-dose SQ SCH (21:06)
[2019-03-29 22:00] VITALS: BP 131/61
[2019-03-30] MEDS: ondansetron/PF 4mg/2ml inj IV PRN ×2 (01:24→14:35)
[2019-03-30 05:00] VITALS: BP 177/89
--- NOTE | 2019-03-30 06:13 | NUR ---
Problems reprioritized. Patient report given, questions answered & plan of care reviewed with Eli ESPINOSA and Tom ESPINOSA.
[2019-03-30] MEDS ORDERED: cefepime 1GM/NS ADD-VANTAGE 100 ML IV SCH ×2 (06:17→16:00)
--- NOTE | 2019-03-30 06:38 | NUR ---
Patient in room ORTHO 4007. I have received report from Serene ESPINOSA and had the opportunity to ask questions and assume patient care. Pt in bed sleeping, will continue to monitor.
--- NOTE | 2019-03-30 06:51 | NUR ---
Patient in room ORTHO 4007. I have received report from Serene ESPINOSA and had the opportunity to ask questions and assume patient care.
--- NOTE | 2019-03-30 07:06 | NUR ---
PAGER ID: [phone] MESSAGE: [phone] Génesis Cruz: EDDIE BP is 177/89, no prn BP meds. Do you want any labs today? Thanks Tom
[2019-03-30] MEDS ORDERED: hydrALAZINE 20mg/ml inj. IV PRN (07:35)
[2019-03-30] MEDS: lactobacillus rhamnosus 10,000 MMU CELLS/CAPSULE PO SCH (07:47)
[2019-03-30] MEDS: normal saline 1000ml 1,000 ML IV SCH (07:47)
[2019-03-30] MEDS: oxybutynin 5mg tablet PO SCH ×2 (07:47→12:07)
[2019-03-30] MEDS: pantoprazole 40mg Tablet.DR PO SCH (07:47)
[2019-03-30] MEDS: levoTHYROXINE 112mcg tablet PO SCH (07:47)
[2019-03-30] MEDS: apixaban 5mg tablet PO SCH (07:47)
[2019-03-30] MEDS: cefepime 1GM in D5W 50mL 50 ML IV SCH (07:48)
[2019-03-30] MEDS: nystatin 15 GM powder TP SCH ×2 (07:49→12:08)
[2019-03-30] MEDS: insulin Lispro (HumaLOG) vial - multi-dose SQ SCH (08:45)
[2019-03-30 09:49] LABS: HEMATOCRIT 49.7 % (35.0-45.0); HEMOGLOBIN 15.1 g/dl (12.0-16.0); MEAN CORPUSCULAR HEMOGLOBIN 20.3 PG (27.0-31.0); MEAN CORPUSCULAR HGB CONC 30.3 g/dL (33.0-36.5); MEAN CORPUSCULAR VOLUME 66.8 FL (78-98); MEAN PLATELET VOLUME 8.5 FL (7.4-10.4); PLATELET COUNT 427 X10'3 (140-440); RED BLOOD COUNT 7.44 X10'6 (4.20-5.60); RED CELL DISTRIBUTION WIDTH 23.2 % (11.5-14.5); WHITE BLOOD COUNT 16.4 X10'3 (4.5-11.0)
[2019-03-30 10:00] VITALS: BP 114/70
[2019-03-30 10:06] LABS: ALANINE AMINOTRANSFERASE 8 U/L (12-78); ALBUMIN 2.5 G/DL (3.4-5.0); ALBUMIN/GLOBULIN RATIO 0.8 (1.1-1.5); ALKALINE PHOSPHATASE 70 IU/L (46-116); ANION GAP 12 (8-16); ASPARTATE AMINO TRANSFERASE 12 U/L (10-37); BILIRUBIN,TOTAL 0.7 MG/DL (0.1-1.0); BLOOD UREA NITROGEN 8 MG/DL (7-18); BUN/CREATININE RATIO 10.3 (6.6-38.0); CALCIUM 7.6 MG/DL (8.5-10.1); CHLORIDE 109 MMOL/L (99-107); CREATININE 0.78 MG/DL (0.40-0.90); GLUCOSE 147 MG/DL (70-104); POTASSIUM 3.6 MMOL/L (3.5-5.1); SODIUM 141 MMOL/L (135-145); TOTAL CARBON DIOXIDE 20.4 MMOL/L (24-32); TOTAL PROTEIN 5.8 G/DL (6.4-8.2); eGFR 71 ML/MIN
[2019-03-30 10:07] LABS: ANISOCYTOSIS 3+; LARGE PLATELETS FEW; MICROCYTOSIS 2+; PLATELET ESTIMATE INCREASED; POLYCHROMASIA 1+; TOTAL CELLS COUNTED 100
[2019-03-30] MEDS ORDERED: QUET25TA34 PO (10:52)
[2019-03-30] MEDS ORDERED: NYSPWD TP (10:52)
[2019-03-30] MEDS ORDERED: calcium carbonate 500mg chew tablet PO SCH (12:30)
[2019-03-30] MEDS ORDERED: simethicone 80mg chew tab PO SCH (13:00)
--- NOTE | 2019-03-30 14:20 | NUR ---
Pt refused meal and insulin, pt states she was hungry at first but not anymore and will skip lunch. all needs met at this time. will continue to monitor. Addendum: 03/30/19 at 1422 by Tom Nicole RN Amended: Links added.
--- NOTE | 2019-03-30 14:24 | NUR ---
Problems reprioritized. Patient report given, questions answered & plan of care reviewed with Sally ESPINOSA from [facility].
--- NOTE | 2019-03-30 16:07 | NUR ---
Pt was picked up for scheduled transfer to [facility] @ 1400 by 1 transportation broker via w/c, all belongings with pt at time of transfer, Report given to Sally ESPINOSA prior to transfer. Addendum: 03/30/19 at 1646 by Tom Nicole RN Transportation arrived around 1315 and pt refusing to go due to anxiety, lebron xanafernandez administered and Dr. Jc notified, after xanax administration pt became more agreeable for the transfer, then pt begins to delay transfer by wanting to read all the paperwork in her packet, eventually was able to be transferred to [facility] @ 1400 with help of three hospital staff and transportation broker.
--- NOTE | 2019-03-30 17:56 | NUR ---
I have reviewed and agree with all interventions, assessments performed and documented by Tom ESPINOSA.
== END 2019-03-30 15:15 | DRG 698 ==
LOC: ER 18:30 → ORTHO 4S 21:37 → CMPBEDREQ 21:42
PROVIDERS: ADMIT Internal Medicine; ATTEND Family Medicine
DX: T83.511A Infection and inflammatory reaction due to indwelling urethral catheter, initial encounter (principal); A41.9 Sepsis, unspecified organism; G93.41 Metabolic encephalopathy; N39.0 Urinary tract infection, site not specified; E11.9 Type 2 diabetes mellitus without complications; E86.0 Dehydration; I11.0 Hypertensive heart disease with heart failure; I50.9 Heart failure, unspecified; K21.9 Gastro-esophageal reflux disease without esophagitis; F32.9 Major depressive disorder, single episode, unspecified; F41.9 Anxiety disorder, unspecified; M19.90 Unspecified osteoarthritis, unspecified site; R32 Unspecified urinary incontinence; B96.5 Pseudomonas (aeruginosa) (mallei) (pseudomallei) as the cause of diseases classified elsewhere; N31.9 Neuromuscular dysfunction of bladder, unspecified; Y84.6 Urinary catheterization as the cause of abnormal reaction of the patient, or of later complication, without mention of misadventure at the time of the procedure; E87.6 Hypokalemia; B35.9 Dermatophytosis, unspecified; Z88.8 Allergy status to other drugs, medicaments and biological substances; Z91.018 Allergy to other foods; Z88.1 Allergy status to other antibiotic agents; Z82.49 Family history of ischemic heart disease and other diseases of the circulatory system; Z80.0 Family history of malignant neoplasm of digestive organs; Z82.0 Family history of epilepsy and other diseases of the nervous system; Z79.01 Long term (current) use of anticoagulants; Z79.4 Long term (current) use of insulin; Z86.73 Personal history of transient ischemic attack (TIA), and cerebral infarction without residual deficits; Z87.440 Personal history of urinary (tract) infections; Z90.710 Acquired absence of both cervix and uterus; Z99.3 Dependence on wheelchair; Z74.01 Bed confinement status; Z79.890 Hormone replacement therapy; Z86.718 Personal history of other venous thrombosis and embolism; Z86.711 Personal history of pulmonary embolism; Y92.89 Other specified places as the place of occurrence of the external cause
CPT/HCPCS: 36415; 70450; 71045; 74018; 80053; 81001; 82948; 83036; 83605; 83735; 84145; 84443; 85025; 85610; 85730; 87040; 87077; 87081; 87088; 87186; 87324; 87449; 93005; 96365; 96367; 97110; 97116; 97163; 97530; 99285; G0378; J0692; J0696; J1815; J2405; J3370; J3475; J7030

== ENCOUNTER 2019-04-29 00:40 | Emergency (ER) | payer MEDICARE, OTHER ==
[~2019-04-29] VITALS: Ht 165.1 cm; Wt 81.8 kg
[~2019-04-29 00:40] MED LIST changes: -ALPR-624 PO; +ALPR1TAB2 PO; +BISA10SU60 RC; -BUPR150T26 PO; +CYCL5TAB PO; -FURO-149 PO; -GABA600T13 PO; -LEVO100T46 PO; +LEVO112T5 PO; +NYSPWD TP; +ONDA4TAB6 PO; -ONDA8TAB9 PO; +OXYB15TA PO; +PANT20TA3 PO; +QUET25TA34 PO
[2019-04-29 01:43] LABS: EOSINOPHILS # (AUTO) 0.5 X10'3 (0-0.9); HEMOGLOBIN 17.1 g/dl (12.0-16.0); LYMPHOCYTES # (AUTO) 1.8 X10'3 (1.1-4.8); MEAN PLATELET VOLUME 8.8 FL (7.4-10.4); MONOCYTES # (AUTO) 0.6 X10'3 (0-0.9)
[2019-04-29 01:45] LABS: BASOPHILS # (AUTO) 0.4 X10'3 (0-0.2); BASOPHILS % (AUTO) 2.3 % (0-1); EOSINOPHILS % (AUTO) 3.4 % (0-6); HEMATOCRIT 56.1 % (35.0-45.0); LYMPHOCYTES % (AUTO) 11.1 % (21-51); MEAN CORPUSCULAR HEMOGLOBIN 20.4 PG (27.0-31.0); MEAN CORPUSCULAR HGB CONC 30.4 g/dL (33.0-36.5); MEAN CORPUSCULAR VOLUME 66.9 FL (78-98); MONOCYTES % (AUTO) 3.7 % (2-12); NEUTROPHILS # (AUTO) 12.6 X10'3 (1.8-7.7); NEUTROPHILS % (AUTO) 79.5 % (42-75); PLATELET COUNT 445 X10'3 (140-440); RED BLOOD COUNT 8.39 X10'6 (4.20-5.60); RED CELL DISTRIBUTION WIDTH 23.8 % (11.5-14.5); WHITE BLOOD COUNT 15.8 X10'3 (4.5-11.0)
[2019-04-29 01:56] LABS: ALANINE AMINOTRANSFERASE 50 U/L (12-78); ALBUMIN 3.2 G/DL (3.4-5.0); ALBUMIN/GLOBULIN RATIO 0.9 (1.1-1.5); ALKALINE PHOSPHATASE 110 IU/L (46-116); ANION GAP 8 (8-16); ASPARTATE AMINO TRANSFERASE 29 U/L (10-37); BILIRUBIN,TOTAL 0.7 MG/DL (0.1-1.0); BLOOD UREA NITROGEN 16 MG/DL (7-18); BUN/CREATININE RATIO 14.7 (6.6-38.0); CALCIUM 8.2 MG/DL (8.5-10.1); CHLORIDE 100 MMOL/L (99-107); CREATININE 1.09 MG/DL (0.40-0.90); GLUCOSE 243 MG/DL (70-104); MAGNESIUM 1.4 MG/DL (1.5-2.4); POTASSIUM 3.3 MMOL/L (3.5-5.1); SODIUM 137 MMOL/L (135-145); TOTAL CARBON DIOXIDE 29.4 MMOL/L (24-32); TOTAL PROTEIN 6.7 G/DL (6.4-8.2); eGFR 48 ML/MIN
[2019-04-29 02:20] LABS: ANISOCYTOSIS 3+; ELLIPTOCYTES 1+; MICROCYTOSIS 2+; PLATELET ESTIMATE INCREASED
[2019-04-29] MEDS ORDERED: CefTRIAXone 2gm/D5W 50ml 50 ML IV ONE (02:20)
--- NOTE | 2019-04-29 02:30 | NUR ---
UNABLE TO SCAN MEDICATION DUE TO COMPUTER NOT WORKING AND ALL ROOMS FILLED-POSSIBLE HIPPA VIOLATION. DOUBLE CHECKED MEDICATION WITH SCOTT ESPINOSA.
--- NOTE | 2019-04-29 02:33 | NUR ---
Unable to obtain urine sample through catheter. aware
[2019-04-29] MEDS ORDERED: normal saline 1000ML IV soln IV ONE (02:45)
[2019-04-29] MEDS ORDERED: vancomycin/NS 1 GM ADD-VANTAGE 250 ML IV ONE (03:25)
[2019-04-29 05:21] LABS: CLARITY,URINE CLOUDY (Clear); COLOR,URINE YELLOW (Yellow); GLUCOSE, URINE NEGATIVE (Neg); KETONES,URINE NEGATIVE (Neg); LEUKOCYTE ESTERASE ,URINE LARGE (Neg); NITRITES, URINE NEGATIVE (Neg); OCCULT BLOOD,URINE MODERATE (Neg); PROTEIN,URINE NEGATIVE (Neg); UROBILINOGEN,URINE 0.2 E.U/dL (0.2-1.0)
[2019-04-29 05:22] LABS: UA COLLECTION TYPE STRAIGHT CATH
[2019-04-29 05:30] LABS: BACTERIA,URINE 2+ /HPF (Neg); WBC,URINE TNTC /HPF (0-4)
[2019-04-29 05:31] LABS: MUCUS STRANDS NONE SEEN /LPF (Neg); SQUAMOUS EPITHELIAL CELL,UR NONE SEEN /LPF (FEW)
[2019-04-29 06:26] VITALS: BP 119/63
--- NOTE | 2019-05-02 08:33 | NUR ---
NKECHI LEAL CALLED AND NOTIFIED OF PT'S URINE CULTURE RESULTS OF 04/29/19. PT HAS BEEN TAKING LEVOQUIN AT THE FACILITY AND PER THE LAB REPORT PT IS RESISTANT TO LEVOQUIN. FACILITY REQUESTED A COPY OF THE REPORT TO F/U WITH PT'S PMD, URINE CULTURE WAS FAXED TO [phone]
== END 2019-04-29 06:29 | disposition home or self-care (01) ==
LOC: ER 00:41
DX: R41.82 Altered mental status, unspecified (principal); D45 Polycythemia vera; N39.0 Urinary tract infection, site not specified; E05.90 Thyrotoxicosis, unspecified without thyrotoxic crisis or storm; E87.6 Hypokalemia; E10.65 Type 1 diabetes mellitus with hyperglycemia; E86.0 Dehydration; I11.0 Hypertensive heart disease with heart failure; I50.9 Heart failure, unspecified; K21.9 Gastro-esophageal reflux disease without esophagitis; M19.90 Unspecified osteoarthritis, unspecified site; Z86.718 Personal history of other venous thrombosis and embolism; Z90.710 Acquired absence of both cervix and uterus; Z88.8 Allergy status to other drugs, medicaments and biological substances; Z88.6 Allergy status to analgesic agent; Z79.899 Other long term (current) drug therapy; Z79.4 Long term (current) use of insulin
CPT/HCPCS: 36415; 70450; 71045; 80053; 81001; 83605; 83735; 83880; 84145; 85025; 87040; 87077; 87088; 87186; 93005; 96365; 96366; 96368; 99284; J0696; J3370; J7030; P9612

== ENCOUNTER 2019-05-27 17:03 | Emergency (ER) | payer MEDICARE ==
[~2019-05-27] VITALS: Ht 165.1 cm; Wt 88.0 kg
--- NOTE | 2019-05-27 19:10 | NUR ---
PT UP , OUT OF BED TO AMBULATE THE UNIT TO ASSESS FOR DIZZINESS, CP , SOB . . PT WAS NOT SOB HAD STEADY AMALIA AND DENIES ANY DIZZINESS OR DISCOMFORT. DR EDMONDSON AWARE
[2019-05-27] MEDS ORDERED: normal saline 1000ml 1,000 ML IV ONE (20:10)
[2019-05-27 20:41] LABS: BASOPHILS # (AUTO) 0.1 X10'3 (0-0.2); BASOPHILS % (AUTO) 0.7 % (0-1); EOSINOPHILS # (AUTO) 0.4 X10'3 (0-0.9); EOSINOPHILS % (AUTO) 2.6 % (0-6); HEMATOCRIT 51.8 % (35.0-45.0); HEMOGLOBIN 15.6 g/dl (12.0-16.0); LYMPHOCYTES # (AUTO) 1.5 X10'3 (1.1-4.8); LYMPHOCYTES % (AUTO) 10.1 % (21-51); MEAN CORPUSCULAR HEMOGLOBIN 20.7 PG (27.0-31.0); MEAN CORPUSCULAR HGB CONC 30.2 g/dL (33.0-36.5); MEAN CORPUSCULAR VOLUME 68.5 FL (78-98); MEAN PLATELET VOLUME 8.6 FL (7.4-10.4); MONOCYTES # (AUTO) 0.6 X10'3 (0-0.9); MONOCYTES % (AUTO) 4.2 % (2-12); NEUTROPHILS # (AUTO) 12.3 X10'3 (1.8-7.7); NEUTROPHILS % (AUTO) 82.4 % (42-75); PLATELET COUNT 491 X10'3 (140-440); RED BLOOD COUNT 7.56 X10'6 (4.20-5.60); RED CELL DISTRIBUTION WIDTH 23.7 % (11.5-14.5); WHITE BLOOD COUNT 14.9 X10'3 (4.5-11.0)
[2019-05-27 20:48] LABS: ALANINE AMINOTRANSFERASE 14 U/L (12-78); ALBUMIN 2.7 G/DL (3.4-5.0); ALBUMIN/GLOBULIN RATIO 0.8 (1.1-1.5); ALKALINE PHOSPHATASE 89 IU/L (46-116); ANION GAP 9 (8-16); ASPARTATE AMINO TRANSFERASE 17 U/L (10-37); BILIRUBIN,TOTAL 0.5 MG/DL (0.1-1.0); BLOOD UREA NITROGEN 10 MG/DL (7-18); BUN/CREATININE RATIO 10.6 (6.6-38.0); CALCIUM 7.3 MG/DL (8.5-10.1); CHLORIDE 107 MMOL/L (99-107); CREATININE 0.94 MG/DL (0.40-0.90); GLUCOSE 166 MG/DL (70-104); POTASSIUM 3.1 MMOL/L (3.5-5.1); SODIUM 142 MMOL/L (135-145); eGFR 57 ML/MIN
[2019-05-27 21:00] LABS: LARGE PLATELETS FEW; PLATELET ESTIMATE INCREASED
[2019-05-27 21:01] LABS: ANISOCYTOSIS 3+; MICROCYTOSIS 2+
[2019-05-27] MEDS ORDERED: HYDROcodone/acetaminophen 10/325mg tab PO ONE (21:35)
[2019-05-27] MEDS ORDERED: potassium Cl 20 mEq SR tablet PO STA (21:55)
[2019-05-27 22:04] LABS: CLARITY,URINE CLEAR (Clear); COLOR,URINE YELLOW (Yellow); GLUCOSE, URINE NEGATIVE (Neg); KETONES,URINE NEGATIVE (Neg); LEUKOCYTE ESTERASE ,URINE LARGE (Neg); NITRITES, URINE POSITIVE (Neg); OCCULT BLOOD,URINE TRACE-LYSED (Neg); PH,URINE 7.5 (4.8-8.0); PROTEIN,URINE NEGATIVE (Neg); UROBILINOGEN,URINE 0.2 E.U/dL (0.2-1.0)
[2019-05-27 22:07] LABS: UA COLLECTION TYPE SUPRAPUBIC CATH
[2019-05-27] MEDS ORDERED: CIPR-230 PO (22:09)
[2019-05-27 22:12] LABS: BACTERIA,URINE FEW /HPF (Neg); MUCUS STRANDS NONE SEEN /LPF (Neg); RBC,URINE NONE SEEN /HPF (0-2); SQUAMOUS EPITHELIAL CELL,UR NONE SEEN /LPF (FEW); WBC,URINE 20-30 /HPF (0-4)
[2019-05-27] MEDS ORDERED: ciprofloxacin 250mg tablet PO ONE (22:15)
[2019-05-27 22:37] VITALS: BP 164/97
== END 2019-05-27 22:43 | disposition home or self-care (01) ==
LOC: ER 17:04
DX: T83.511A Infection and inflammatory reaction due to indwelling urethral catheter, initial encounter (principal); I11.0 Hypertensive heart disease with heart failure; I50.9 Heart failure, unspecified; K21.9 Gastro-esophageal reflux disease without esophagitis; E11.9 Type 2 diabetes mellitus without complications; M19.90 Unspecified osteoarthritis, unspecified site; F41.9 Anxiety disorder, unspecified; F32.9 Major depressive disorder, single episode, unspecified; Z86.718 Personal history of other venous thrombosis and embolism; Z90.710 Acquired absence of both cervix and uterus; Z88.8 Allergy status to other drugs, medicaments and biological substances; Z88.1 Allergy status to other antibiotic agents; Z79.4 Long term (current) use of insulin; Z79.899 Other long term (current) drug therapy; Y84.6 Urinary catheterization as the cause of abnormal reaction of the patient, or of later complication, without mention of misadventure at the time of the procedure; Y92.89 Other specified places as the place of occurrence of the external cause
CPT/HCPCS: 36415; 80053; 81001; 82948; 85025; 87077; 87088; 87186; 99284; J7030

== ENCOUNTER 2019-09-22 06:52 | Day surgery (SDC) | payer MEDICARE ==
[2019-09-22] VITALS (12 sets, daily range): BP systolic 120–148; BP diastolic 51–79
[~2019-09-22] VITALS: Ht 165.1 cm; Wt 81.7 kg
[~2019-09-22 06:52] MED LIST changes: +BUPR-94 PO; -CYCL5TAB PO; +GABA600T13 PO; +INSU100C4 SQ; +OMEP20CA15 PO; -OXYB15TA PO; +OXYB15TA19 PO; -PANT20TA3 PO
[2019-09-22] MEDS ORDERED: normal saline 1000ml 1,000 ML IV PRN (07:25)
[2019-09-22] MEDS ORDERED: ONDA4TAB6 PO (07:39)
[2019-09-22] MEDS ORDERED: QUET25TA34 PO (07:39)
[2019-09-22] MEDS ORDERED: FURO-149 PO (07:39)
[2019-09-22] MEDS ORDERED: LEVO112T5 PO (07:39)
[2019-09-22] MEDS ORDERED: QUET50TA PO (07:42)
[2019-09-22 08:32] LABS: BASOPHILS # (AUTO) 0.2 X10'3 (0-0.2); EOSINOPHILS # (AUTO) 0.6 X10'3 (0-0.9); EOSINOPHILS % (AUTO) 3.7 % (0-6); MEAN PLATELET VOLUME 8.5 FL (7.4-10.4); MONOCYTES # (AUTO) 0.9 X10'3 (0-0.9); WHITE BLOOD COUNT 16.3 X10'3 (4.5-11.0)
[2019-09-22 08:34] LABS: BASOPHILS % (AUTO) 1.3 % (0-1); HEMATOCRIT 53.1 % (35.0-45.0); LYMPHOCYTES # (AUTO) 1.6 X10'3 (1.1-4.8); LYMPHOCYTES % (AUTO) 9.7 % (21-51); MEAN CORPUSCULAR HEMOGLOBIN 19.5 PG (27.0-31.0); MEAN CORPUSCULAR HGB CONC 30.1 g/dL (33.0-36.5); MEAN CORPUSCULAR VOLUME 64.7 FL (78-98); MONOCYTES % (AUTO) 5.4 % (2-12); NEUTROPHILS % (AUTO) 79.9 % (42-75); PLATELET COUNT 520 X10'3 (140-440); RED BLOOD COUNT 8.21 X10'6 (4.20-5.60); RED CELL DISTRIBUTION WIDTH 22.1 % (11.5-14.5)
[2019-09-22 08:38] LABS: ALBUMIN 3.1 G/DL (3.4-5.0); ANION GAP 9 (8-16); BLOOD UREA NITROGEN 11 MG/DL (7-18); BUN/CREATININE RATIO 14.3 (6.6-38.0); CALCIUM 8.7 MG/DL (8.5-10.1); CHLORIDE 94 MMOL/L (99-107); CREATININE 0.77 MG/DL (0.40-0.90); GLUCOSE 167 MG/DL (70-104); SODIUM 129 MMOL/L (135-145); TOTAL CARBON DIOXIDE 26.2 MMOL/L (24-32); eGFR 72 ML/MIN
[2019-09-22 08:44] LABS: PARTIAL THROMBOPLASTIN TIME 36 SECONDS (22-32)
[2019-09-22 09:09] LABS: ANISOCYTOSIS 3+; MICROCYTOSIS 2+; PLATELET ESTIMATE INCREASED
[2019-09-22 09:10] LABS: ELLIPTOCYTES 1+; POLYCHROMASIA FEW
[2019-09-22] MEDS ORDERED: iohexol 300mg/ml 100ml inj. ONE (09:17)
[2019-09-22] MEDS ORDERED: midazolam 2 mg/2 ml injection ONE (09:17)
[2019-09-22] MEDS ORDERED: LIDOcaine 1%/PF 5ML 10 MG/ML VIAL ONE (09:17)
[2019-09-22] MEDS ORDERED: heparin 1,000 UNITS/NS 500ml 500 ML ONE (09:17)
[2019-09-22] MEDS ORDERED: fentaNYL/PF 50MCG/1 ML 2ML syringe ONE ×2 (09:17→10:40)
[2019-09-22] MEDS ORDERED: normal saline 1000ml 1,000 ML IV SCH (09:39)
[2019-09-22] MEDS ORDERED: heparin 1,000unit/ml 10ml vial 10 ML ONE (10:32)
[2019-09-22] MEDS ORDERED: CLOP75TA15 PO (11:12)
[2019-09-22] MEDS ORDERED: clopidogrel 75mg tablet PO SCH (11:30)
[2019-09-22] MEDS ORDERED: ondansetron 4mg rapidly disintigrating tab PO PRN (12:15)
[2019-09-22] MEDS ORDERED: ALPRAZolam 0.5mg tablet PO SCH (12:15)
[2019-09-22] MEDS ORDERED: HYDROcodone/acetaminophen 10/325mg tab PO PRN (12:15)
[2019-09-22] MEDS ORDERED: insulin Lispro (HumaLOG) vial - multi-dose SQ SCH (17:00)
[2019-09-22] MEDS ORDERED: QUEtiapine 25mg tablet PO SCH (21:00)
[2019-09-22] MEDS ORDERED: gabapentin 300mg capsule PO SCH (21:00)
[2019-09-22] MEDS ORDERED: insulin glargine (Lantus) pen - multi-dose SQ SCH (21:00)
[2019-09-23] MEDS ORDERED: pantoprazole 40mg Tablet.DR PO SCH (07:30)
[2019-09-23] MEDS ORDERED: levoTHYROXINE 112mcg tablet PO SCH ×2 (08:00)
[2019-09-23] MEDS ORDERED: oxybutynin 5mg tablet PO SCH (08:00)
[2019-09-23] MEDS ORDERED: gabapentin 300mg capsule PO SCH (08:00)
[2019-09-23] MEDS ORDERED: furosemide 40mg tablet PO SCH (08:00)
== END 2019-09-22 15:35 | disposition home or self-care (01) ==
LOC: SSTAY O 06:52
PROVIDERS: ATTEND Radiology Diagnostic Radiology
DX: E11.51 Type 2 diabetes mellitus with diabetic peripheral angiopathy without gangrene (principal); I70.211 Atherosclerosis of native arteries of extremities with intermittent claudication, right leg; Z79.899 Other long term (current) drug therapy; Z91.018 Allergy to other foods; Z91.013 Allergy to seafood; Z79.01 Long term (current) use of anticoagulants; Z88.8 Allergy status to other drugs, medicaments and biological substances
CPT/HCPCS: 37224; 80048; 85025; 85610; 85730; 99152; 99153; C1725; C1760; C1769; C1894; C2623; J1644; J2250; J3010; J7030; Q9967; J1815

== ENCOUNTER 2020-01-04 18:13 | Emergency (ER) | payer MEDICARE, OTHER ==
[~2020-01-04] VITALS: Ht 170.2 cm; Wt 80.0 kg
[~2020-01-04 18:13] MED LIST changes: -APIX5TAB3 PO; -BISA10SU60 RC; -BUPR-94 PO; +BUPR100T5 PO; +CLOP75TA15 PO; +FURO-149 PO; -NYSPWD TP; +QUET25TA PO; -QUET25TA34 PO
[2020-01-04 18:55] LABS: ALANINE AMINOTRANSFERASE 9 U/L (12-78); ALBUMIN 3.3 G/DL (3.4-5.0); ALKALINE PHOSPHATASE 77 IU/L (46-116); ANION GAP 7 (8-16); ASPARTATE AMINO TRANSFERASE 16 U/L (10-37); BILIRUBIN,TOTAL 0.9 MG/DL (0.1-1.0); BLOOD UREA NITROGEN 9 MG/DL (7-18); BUN/CREATININE RATIO 9.5 (6.6-38.0); CALCIUM 8.2 MG/DL (8.5-10.1); CHLORIDE 100 MMOL/L (99-107); CREATININE 0.95 MG/DL (0.40-0.90); GLUCOSE 216 MG/DL (70-104); LIPASE 100 U/L (73-393); POTASSIUM 3.3 MMOL/L (3.5-5.1); SODIUM 137 MMOL/L (135-145); TOTAL CARBON DIOXIDE 29.8 MMOL/L (24-32); TOTAL PROTEIN 6.6 G/DL (6.4-8.2); eGFR 56 ML/MIN
[2020-01-04 19:12] LABS: BASOPHILS # (AUTO) 0.2 X10'3 (0-0.2); BASOPHILS % (AUTO) 1.2 % (0-1); EOSINOPHILS # (AUTO) 0.2 X10'3 (0-0.9); EOSINOPHILS % (AUTO) 1.3 % (0-6); HEMATOCRIT 55.1 % (35.0-45.0); HEMOGLOBIN 16.6 g/dl (12.0-16.0); LYMPHOCYTES # (AUTO) 0.7 X10'3 (1.1-4.8); LYMPHOCYTES % (AUTO) 5.3 % (21-51); MEAN CORPUSCULAR HEMOGLOBIN 22.3 PG (27.0-31.0); MEAN CORPUSCULAR HGB CONC 30.1 g/dL (33.0-36.5); MEAN CORPUSCULAR VOLUME 74.2 FL (78-98); MONOCYTES # (AUTO) 0.4 X10'3 (0-0.9); MONOCYTES % (AUTO) 3.3 % (2-12); NEUTROPHILS % (AUTO) 88.9 % (42-75); PLATELET COUNT 284 X10'3 (140-440); RED BLOOD COUNT 7.43 X10'6 (4.20-5.60); WHITE BLOOD COUNT 13.5 X10'3 (4.5-11.0)
[2020-01-04 19:45] VITALS: BP 122/77
[2020-01-04 19:46] LABS: ANISOCYTOSIS 3+; ELLIPTOCYTES 1+; LARGE PLATELETS MODERATE; MICROCYTOSIS 1+; PLATELET ESTIMATE NORMAL; STOMATOCYTES 1+
[2020-01-04 19:47] LABS: CLARITY,URINE CLOUDY (Clear); COLOR,URINE YELLOW (Yellow); GLUCOSE, URINE NEGATIVE (Neg); KETONES,URINE NEGATIVE (Neg); LEUKOCYTE ESTERASE ,URINE LARGE (Neg); NITRITES, URINE NEGATIVE (Neg); OCCULT BLOOD,URINE LARGE (Neg); PH,URINE >=9.0 (4.8-8.0); PROTEIN,URINE NEGATIVE (Neg); UROBILINOGEN,URINE 0.2 E.U/dL (0.2-1.0)
[2020-01-04 19:51] LABS: UA COLLECTION TYPE FOLEY CATH
[2020-01-04 19:53] LABS: BACTERIA,URINE 3+ /HPF (Neg); SQUAMOUS EPITHELIAL CELL,UR FEW /LPF (FEW)
[2020-01-04 20:00] LABS: TRIPLE PHOSPHATE CRYST 2+ /HPF (NEGATIVE)
[2020-01-04] MEDS ORDERED: NITR100C6 PO (20:03)
[2020-01-04] MEDS ORDERED: CLOP75TA35 PO (20:22)
== END 2020-01-04 20:30 | disposition home or self-care (01) ==
LOC: ER 18:14
DX: N39.0 Urinary tract infection, site not specified (principal); R31.9 Hematuria, unspecified; I11.0 Hypertensive heart disease with heart failure; I50.9 Heart failure, unspecified; K21.9 Gastro-esophageal reflux disease without esophagitis; E11.9 Type 2 diabetes mellitus without complications; F41.9 Anxiety disorder, unspecified; F32.9 Major depressive disorder, single episode, unspecified; Z87.440 Personal history of urinary (tract) infections; Z90.710 Acquired absence of both cervix and uterus; Z86.718 Personal history of other venous thrombosis and embolism; Z88.1 Allergy status to other antibiotic agents; Z88.8 Allergy status to other drugs, medicaments and biological substances; Z79.01 Long term (current) use of anticoagulants; Z79.4 Long term (current) use of insulin; Z79.899 Other long term (current) drug therapy
CPT/HCPCS: 36415; 80053; 81001; 83690; 85025; 87077; 87088; 87186; 99284

== ENCOUNTER 2021-07-10 17:52 | Emergency (ER) | payer OTHER ==
[~2021-07-10] VITALS: Ht 165.1 cm; Wt 82.0 kg
[~2021-07-10 17:52] MED LIST changes: +ASPI-611 PO; +BUPR-297 PO; -BUPR100T5 PO; +D-MA50PO PO; +HYDR-3972 PO; -HYDR-4353 PO; +HYDR500C2 PO; -INSU100C4 SQ; +INSU100I8 SQ; +METH1TAB32 PO; +NITR50CA PO; -OMEP20CA15 PO; -ONDA4TAB6 PO; -OXYB15TA19 PO; +OXYB5TAB16 PO; +PANT40TA54 PO; -QUET25TA PO
[2021-07-10] MEDS ORDERED: tranexamic acid 1gm/0.7% sal. 100 ML IV ONE (18:55)
[2021-07-10] MEDS ORDERED: tranexamic acid 100mg/ml inj. TP ONE ×4 (18:55→22:55)
[2021-07-10] MEDS ORDERED: normal saline 1000ml 1,000 ML IV ONE (19:00)
[2021-07-10 19:03] LABS: BASOPHILS % (AUTO) 0.2 % (0-1); EOSINOPHILS % (AUTO) 0 % (0-6); HEMATOCRIT 54.9 % (35.0-45.0); LYMPHOCYTES # (AUTO) 0.3 X10'3 (1.1-4.8); LYMPHOCYTES % (AUTO) 2.6 % (21-51); MEAN CORPUSCULAR HEMOGLOBIN 34.9 PG (27.0-31.0); MEAN CORPUSCULAR HGB CONC 33.7 g/dL (33.0-36.5); MEAN CORPUSCULAR VOLUME 103.5 FL (78-98); MEAN PLATELET VOLUME 8.4 FL (7.4-10.4); MONOCYTES # (AUTO) 0.2 X10'3 (0-0.9); NEUTROPHILS # (AUTO) 10.9 X10'3 (1.8-7.7); NEUTROPHILS % (AUTO) 95.2 % (42-75); PLATELET COUNT 323 X10'3 (140-440); RED CELL DISTRIBUTION WIDTH 20.1 % (11.5-14.5); WHITE BLOOD COUNT 11.4 X10'3 (4.5-11.0)
--- NOTE | 2021-07-10 19:19 | NUR ---
Received critical value from lab for 18.5hgb from lab. Notified provider.
[2021-07-10 19:20] LABS: HEMOGLOBIN 18.5 g/dl (12.0-16.0)
[2021-07-10 19:51] LABS: PLATELET ESTIMATE NORMAL
[2021-07-10 19:52] LABS: ANISOCYTOSIS 3+; ELLIPTOCYTES FEW
[2021-07-10 19:54] LABS: SPHEROCYTES FEW
[2021-07-10 19:55] LABS: TEAR DROP CELLS FEW
[2021-07-10 20:08] LABS: COLOR,URINE YELLOW (Yellow); GLUCOSE, URINE 500 mg/dl (Neg); KETONES,URINE 15 mg/dl (Neg); LEUKOCYTE ESTERASE ,URINE NEGATIVE (Neg); NITRITES, URINE NEGATIVE (Neg); OCCULT BLOOD,URINE NEGATIVE (Neg); PROTEIN,URINE NEGATIVE (Neg); UROBILINOGEN,URINE 0.2 E.U/dL (0.2-1.0)
[2021-07-10 20:16] LABS: CLARITY,URINE SLIGHTLY CLOUDY (Clear)
[2021-07-10 20:17] LABS: BACTERIA,URINE FEW /HPF (Neg); RBC,URINE 0-2 /HPF (0-2); SQUAMOUS EPITHELIAL CELL,UR FEW /LPF (FEW); UA COLLECTION TYPE STRAIGHT CATH; WBC,URINE 0-4 /HPF (0-4)
[2021-07-10 20:18] LABS: MUCUS STRANDS FEW /LPF (Neg)
--- NOTE | 2021-07-10 20:42 | NUR ---
Urine obtained via existing suprapubic catheter.
[2021-07-10] MEDS ORDERED: morphine 4 MG/ML inj SYRINge IV ONE (20:45)
[2021-07-10 21:48] LABS: PARTIAL THROMBOPLASTIN TIME 30 SECONDS (22-32)
[2021-07-11] MEDS ORDERED: normal saline 500ml IV soln 500 ML IV ONE (01:55)
[2021-07-11] MEDS ORDERED: morphine 4 MG/ML inj SYRINge IV ONE ×2 (02:35→03:00)
[2021-07-11 04:09] VITALS: BP 140/74
--- NOTE | 2021-07-11 05:13 | NUR ---
called son for more information regarding patients surgeon and transfer. left a vm to call nurse at ED
[2021-07-11] MEDS ORDERED: tranexamic acid 100mg/ml inj. TP ONE (05:15)
[2021-07-11] MEDS ORDERED: LIDOcaine 1% W/epiNEPHrine 1:200,000 10ml vial IJ STA (05:15)
[2021-07-11] MEDS ORDERED: LIDOcaine 1% w/epiNEPHrine 1:200,000 30ml vial IJ ONE (05:25)
--- NOTE | 2021-07-11 06:11 | NUR ---
odin, son, contacted in regards to moms condition. son notified that dressing should stay in place for 24 hours and she needs fu with oral surgeon/dentist as soon as possible. awaiting transportation. she has an appointment set for today with her dentist per son's report
== END 2021-07-11 07:36 | disposition home or self-care (01) ==
LOC: ER 17:53
DX: K91.841 Postprocedural hemorrhage of a digestive system organ or structure following other procedure (principal); K21.9 Gastro-esophageal reflux disease without esophagitis; I11.0 Hypertensive heart disease with heart failure; I50.9 Heart failure, unspecified; E11.9 Type 2 diabetes mellitus without complications; M81.0 Age-related osteoporosis without current pathological fracture; Z88.8 Allergy status to other drugs, medicaments and biological substances; Z79.01 Long term (current) use of anticoagulants; Z91.018 Allergy to other foods; Z79.82 Long term (current) use of aspirin; Z79.899 Other long term (current) drug therapy; Z79.4 Long term (current) use of insulin; Z87.81 Personal history of (healed) traumatic fracture; Z90.710 Acquired absence of both cervix and uterus
CPT/HCPCS: 36415; 81001; 85008; 85025; 85610; 85730; 93005; 96361; 96365; 96366; 96375; 96376; 99291; J2270; J3490; J7030; J7040; 99284

== ENCOUNTER 2023-04-03 21:56 | Inpatient (IN) | payer MEDICARE, OTHER ==
[~2023-04-03] VITALS: Ht 165.1 cm; Wt 70.5 kg
[~2023-04-03 21:56] MED LIST changes: -INSU100I25 SQ; +INSU100I27 SQ
[2023-04-03 23:26] LABS: BILIRUBIN,URINE NEGATIVE (Neg); CLARITY,URINE CLOUDY (Clear); COLOR,URINE YELLOW (Yellow); GLUCOSE, URINE NEGATIVE (Neg); KETONES,URINE NEGATIVE (Neg); LEUKOCYTE ESTERASE ,URINE SMALL (Neg); NITRITES, URINE NEGATIVE (Neg); OCCULT BLOOD,URINE LARGE (Neg); PH,URINE 8.5 (4.8-8.0); PROTEIN,URINE 30 mg/dl (Neg); UROBILINOGEN,URINE 0.2 E.U/dL (0.2-1.0)
[2023-04-03 23:34] LABS: UA COLLECTION TYPE FOLEY CATH
[2023-04-03 23:36] LABS: AMORPHOUS PHOSPHATES 1+; BACTERIA,URINE 1+ /HPF (Neg); RBC,URINE TNTC /HPF (0-2); SQUAMOUS EPITHELIAL CELL,UR FEW /LPF (FEW); TRIPLE PHOSPHATE CRYST 3+ /HPF (NEGATIVE)
[2023-04-03 23:54] LABS: EOSINOPHILS # (AUTO) 0.4 X10'3 (0-0.9); LYMPHOCYTES # (AUTO) 1.1 X10'3 (1.1-4.8); LYMPHOCYTES % (AUTO) 4.7 % (21-51); MEAN PLATELET VOLUME 7.8 FL (7.4-10.4)
[2023-04-03 23:56] LABS: BASOPHILS # (AUTO) 0.1 X10'3 (0-0.2); BASOPHILS % (AUTO) 0.4 % (0-1); EOSINOPHILS % (AUTO) 1.9 % (0-6); MONOCYTES % (AUTO) 4.1 % (2-12); NEUTROPHILS # (AUTO) 20.9 X10'3 (1.8-7.7); NEUTROPHILS % (AUTO) 88.9 % (42-75); WHITE BLOOD COUNT 23.5 X10'3 (4.5-11.0)
[2023-04-04 00:13] LABS: ALANINE AMINOTRANSFERASE 9 U/L (12-78); ALBUMIN 2.6 G/DL (3.4-5.0); ALBUMIN/GLOBULIN RATIO 0.9 (1.1-1.5); ALKALINE PHOSPHATASE 87 IU/L (46-116); ANION GAP 8 (8-16); ASPARTATE AMINO TRANSFERASE 14 U/L (10-37); BILIRUBIN,TOTAL 0.8 MG/DL (0.1-1.0); BLOOD UREA NITROGEN 6 MG/DL (7-18); BUN/CREATININE RATIO 9.2 (10.0-20.0); CHLORIDE 91 MMOL/L (99-107); CREATININE 0.65 MG/DL (0.40-0.90); GLUCOSE 137 MG/DL (70-104); POTASSIUM 4.4 MMOL/L (3.5-5.1); SODIUM 122 MMOL/L (135-145); TOTAL CARBON DIOXIDE 23.3 MMOL/L (24-32); TOTAL PROTEIN 5.5 G/DL (6.4-8.2); eCRCL 58 ML/MIN; eGFR 87 ML/MIN
[2023-04-04 00:32] LABS: HEMATOCRIT 47.5 % (35.0-45.0); HEMOGLOBIN 15.2 g/dl (12.0-16.0); MEAN CORPUSCULAR HEMOGLOBIN 22.2 PG (27.0-31.0); MEAN CORPUSCULAR HGB CONC 32.1 g/dL (33.0-36.5); MEAN CORPUSCULAR VOLUME 69.2 FL (78-98); RED BLOOD COUNT 6.85 X10'6 (4.20-5.60)
[2023-04-04 00:34] LABS: PLATELET COUNT 1124 X10'3 (140-440)
[2023-04-04 02:52] LABS: ANISOCYTOSIS 3+; MICROCYTOSIS 1+; PLATELET ESTIMATE INCREASED; TOTAL CELLS COUNTED 100
[2023-04-04 02:53] LABS: ELLIPTOCYTES FEW; LARGE PLATELETS MODERATE
[2023-04-04] MEDS ORDERED: magnesium 4gm in 100ml NS 100 ML IV PRN (03:50)
[2023-04-04] MEDS ORDERED: potassium Cl 40MEQ/1/2NS 520ml 520 ML IV PRN (03:50)
[2023-04-04] MEDS ORDERED: mag hydrox/Alum hydrox/simeth 30ml oral suspension PO PRN (03:50)
[2023-04-04] MEDS ORDERED: acetaminophen 325mg tablet PO PRN (03:50)
[2023-04-04] MEDS ORDERED: potassium Cl 20 mEq SR tablet PO PRN ×2 (03:50)
[2023-04-04] MEDS ORDERED: DEXTROSE 15 GM of carb/4 tabs (each vial/BOTTLE has 4 tablets) PO PRN ×2 (04:20)
[2023-04-04] MEDS ORDERED: glucagon, human recombinant 1mg kit SUBCUT PRN (04:20)
[2023-04-04] MEDS ORDERED: dextrose 50%-water 50ml dispensing syringe IV PRN ×2 (04:20)
[2023-04-04] MEDS ORDERED: MESSAGE TO PHARMACY PO ONE (04:20)
[2023-04-04] MEDS: normal saline 1000ml 1,000 ML IV SCH ×3 (05:00→20:38)
[2023-04-04] MEDS: K and/or MAG REPLACEMENT MC SCH ×2 (07:38→20:00)
[2023-04-04] MEDS: MEROPENEM 1GM/NS 100ML IVPB 100 ML IV SCH ×3 (07:47→23:43)
[2023-04-04] MEDS ORDERED: MEROPENEM 1GM/NS 100ML IVPB 100 ML IV ONE (08:00)
[2023-04-04] MEDS: docusate sod 100mg capsule PO SCH ×2 (08:00→21:12)
[2023-04-04 08:47] LABS: ALANINE AMINOTRANSFERASE 6 U/L (12-78); ALBUMIN 2.4 G/DL (3.4-5.0); ALBUMIN/GLOBULIN RATIO 0.9 (1.1-1.5); ALKALINE PHOSPHATASE 81 IU/L (46-116); ANION GAP 8 (8-16); ASPARTATE AMINO TRANSFERASE 14 U/L (10-37); BILIRUBIN,TOTAL 0.6 MG/DL (0.1-1.0); BLOOD UREA NITROGEN 7 MG/DL (7-18); BUN/CREATININE RATIO 9.7 (10.0-20.0); CALCIUM 7.9 MG/DL (8.5-10.1); CHLORIDE 92 MMOL/L (99-107); CREATININE 0.72 MG/DL (0.40-0.90); GLUCOSE 169 MG/DL (70-104); POTASSIUM 4.6 MMOL/L (3.5-5.1); SODIUM 122 MMOL/L (135-145); TOTAL CARBON DIOXIDE 21.7 MMOL/L (24-32); TOTAL PROTEIN 5.1 G/DL (6.4-8.2); eCRCL 52 ML/MIN; eGFR 77 ML/MIN
[2023-04-04 08:48] LABS: BASOPHILS # (AUTO) 0.1 X10'3 (0-0.2); BASOPHILS % (AUTO) 0.6 % (0-1); EOSINOPHILS # (AUTO) 0.4 X10'3 (0-0.9); EOSINOPHILS % (AUTO) 1.7 % (0-6); HEMATOCRIT 50.5 % (35.0-45.0); HEMOGLOBIN 14.8 g/dl (12.0-16.0); LYMPHOCYTES # (AUTO) 0.8 X10'3 (1.1-4.8); LYMPHOCYTES % (AUTO) 3.5 % (21-51); MEAN CORPUSCULAR HEMOGLOBIN 21.1 PG (27.0-31.0); MEAN CORPUSCULAR HGB CONC 29.3 g/dL (33.0-36.5); MEAN CORPUSCULAR VOLUME 71.9 FL (78-98); MEAN PLATELET VOLUME 7.7 FL (7.4-10.4); MONOCYTES # (AUTO) 0.9 X10'3 (0-0.9); MONOCYTES % (AUTO) 3.9 % (2-12); NEUTROPHILS # (AUTO) 21.2 X10'3 (1.8-7.7); NEUTROPHILS % (AUTO) 90.3 % (42-75); RED BLOOD COUNT 7.02 X10'6 (4.20-5.60); RED CELL DISTRIBUTION WIDTH 22.1 % (11.5-14.5); WHITE BLOOD COUNT 23.5 X10'3 (4.5-11.0)
[2023-04-04 08:54] LABS: PLATELET COUNT 1184 X10'3 (140-440)
[2023-04-04 09:07] LABS: ANISOCYTOSIS 3+; MICROCYTOSIS 1+; PLATELET ESTIMATE INCREASED; TOTAL CELLS COUNTED 100
[2023-04-04 09:08] LABS: ELLIPTOCYTES 1+; HYPOCHROMASIA 1+; LARGE PLATELETS FEW; POLYCHROMASIA 1+; TOXIC GRANULATION 2+; TOXIC VACUOLATION FEW
[2023-04-04 09:09] LABS: HYPERSEGMENTED NEUTROPHILS FEW
--- NOTE | 2023-04-04 09:25 | NUR ---
Report given to rocío Plasencia assigned bed 8996A
[2023-04-04 10:00] VITALS: BP 120/63; PULSE 78; RESP 16; TEMP 98.2; O2SAT 97
[2023-04-04] MEDS ORDERED: INSU100C4 SQ (10:50)
[2023-04-04] MEDS ORDERED: AZEL6DRO5 RIGHTEYE (10:50)
[2023-04-04] MEDS ORDERED: SERT-432 PO (10:50)
[2023-04-04] MEDS ORDERED: [UNRECOGNIZED DRUG - OTHER] PO (10:50)
[2023-04-04] MEDS ORDERED: ONDA4TAB12 PO (10:50)
[2023-04-04] MEDS ORDERED: AZEL6DRO5 EACHEYE (10:50)
[2023-04-04] MEDS ORDERED: FLAVOXATE PO (10:50)
[2023-04-04 12:10] LABS: HEMOGLOBIN A1C 6.8 % (4.5-6.2)
[2023-04-04] MEDS ORDERED: LACT1CAP75 PO (16:13)
[2023-04-04] MEDS ORDERED: METH1TAB29 PO (16:15)
[2023-04-04] MEDS ORDERED: HYDROmorphone/PF 0.2 MG/ML SYRINGE IV PRN (16:25)
[2023-04-04] MEDS: HYDROmorphone inj. 0.5 MG/0.5 ML DISP.SYRIN IV PRN (16:46)
[2023-04-04] MEDS ORDERED: HYDROcodone/acetaminophen 10/325mg tab PO PRN (16:55)
--- NOTE | 2023-04-04 16:57 | NUR ---
Suprapubic catheter changed this shift.
[2023-04-04 17:52] LABS: THYROID STIMULATING HORMONE 0.49 ulU/ml (0.34-4.50)
[2023-04-04 18:00] VITALS: BP 120/53; PULSE 79; RESP 17; TEMP 98.1; O2SAT 97
[2023-04-04 20:00] VITALS: RESP 17; O2SAT 97
[2023-04-04] MEDS ORDERED: insulin glargine (Lantus) pen - multi-dose SQ SCH (21:00)
[2023-04-04] MEDS: enoxaparin 40mg/0.4ml syringe SQ SCH (21:11)
[2023-04-04] MEDS: oxybutynin 5mg tablet PO SCH (21:12)
[2023-04-04] MEDS: HYDROcodone/acetaminophen 5mg/325mg tablet PO PRN (21:12)
[2023-04-04] MEDS: insulin glargine (Lantus) pen - multi-dose SQ SCH (21:36)
[2023-04-04 22:00] VITALS: BP 126/57; PULSE 71; RESP 15; TEMP 98.1; O2SAT 98
[2023-04-05] MEDS: HYDROcodone/acetaminophen 5mg/325mg tablet PO PRN (03:13)
[2023-04-05] MEDS: normal saline 1000ml 1,000 ML IV SCH ×4 (04:33→23:53)
[2023-04-05 06:00] VITALS: BP 115/52; PULSE 65; RESP 15; TEMP 97.5; O2SAT 97
--- NOTE | 2023-04-05 06:09 | NUR ---
Problems reprioritized. Patient report given, questions answered & plan of care reviewed with Mirian ESPINOSA. Addendum: 04/05/23 at 0611 by Mary Jane Corona RN Amended: Links added.
[2023-04-05 07:12] LABS: EOSINOPHILS # (AUTO) 0.6 X10'3 (0-0.9); EOSINOPHILS % (AUTO) 2.7 % (0-6); HEMOGLOBIN 14.3 g/dl (12.0-16.0); LYMPHOCYTES # (AUTO) 1.2 X10'3 (1.1-4.8); MONOCYTES # (AUTO) 0.9 X10'3 (0-0.9)
[2023-04-05 07:16] LABS: BASOPHILS # (AUTO) 0.8 X10'3 (0-0.2); BASOPHILS % (AUTO) 3.6 % (0-1); HEMATOCRIT 48.5 % (35.0-45.0); LYMPHOCYTES % (AUTO) 5.7 % (21-51); MEAN CORPUSCULAR HEMOGLOBIN 21.1 PG (27.0-31.0); MEAN CORPUSCULAR HGB CONC 29.6 g/dL (33.0-36.5); MEAN CORPUSCULAR VOLUME 71.5 FL (78-98); MEAN PLATELET VOLUME 7.8 FL (7.4-10.4); NEUTROPHILS # (AUTO) 18.5 X10'3 (1.8-7.7); RED BLOOD COUNT 6.79 X10'6 (4.20-5.60); RED CELL DISTRIBUTION WIDTH 22.1 % (11.5-14.5)
[2023-04-05] MEDS: MEROPENEM 1GM/NS 100ML IVPB 100 ML IV SCH ×3 (07:23→23:54)
[2023-04-05] MEDS: lactobacillus rhamnosus 10,000 MMU CELLS/CAPSULE PO SCH (07:26)
[2023-04-05] MEDS: pantoprazole 40mg Tablet.DR PO SCH (07:26)
[2023-04-05] MEDS: oxybutynin 5mg tablet PO SCH ×2 (07:27→21:18)
[2023-04-05] MEDS: levoTHYROXINE 112mcg tablet PO SCH (07:27)
[2023-04-05] MEDS: clopidogrel 75mg tablet PO SCH (07:27)
[2023-04-05 07:28] LABS: ALBUMIN 2.2 G/DL (3.4-5.0); ALBUMIN/GLOBULIN RATIO 0.8 (1.1-1.5); ALKALINE PHOSPHATASE 76 IU/L (46-116); ANION GAP 4 (8-16); ASPARTATE AMINO TRANSFERASE 14 U/L (10-37); BILIRUBIN,TOTAL 0.4 MG/DL (0.1-1.0); BLOOD UREA NITROGEN 7 MG/DL (7-18); BUN/CREATININE RATIO 9.9 (10.0-20.0); CALCIUM 7.4 MG/DL (8.5-10.1); CHLORIDE 95 MMOL/L (99-107); CREATININE 0.71 MG/DL (0.40-0.90); GLUCOSE 100 MG/DL (70-104); MAGNESIUM 1.2 MG/DL (1.5-2.4); POTASSIUM 4.1 MMOL/L (3.5-5.1); SODIUM 125 MMOL/L (135-145); TOTAL CARBON DIOXIDE 26.5 MMOL/L (24-32); TOTAL PROTEIN 4.9 G/DL (6.4-8.2); eCRCL 53 ML/MIN; eGFR 78 ML/MIN
[2023-04-05] MEDS: docusate sod 100mg capsule PO SCH ×2 (07:28→21:18)
[2023-04-05] MEDS: aspirin 81mg, enteric-coated 1 TAB TABLET.DR PO SCH (07:28)
[2023-04-05 07:29] LABS: ALANINE AMINOTRANSFERASE < 6 U/L (12-78)
[2023-04-05 08:00] VITALS: RESP 16; O2SAT 96
[2023-04-05] MEDS: K and/or MAG REPLACEMENT MC SCH ×2 (08:00→20:00)
[2023-04-05 08:55] LABS: PLATELET COUNT 1269 X10'3 (140-440)
[2023-04-05 08:57] LABS: MICROCYTOSIS 3+; PLATELET ESTIMATE INCREASED; POIKILOCYTOSIS 1+
[2023-04-05] MEDS: HYDROcodone/acetaminophen 10/325mg tab PO PRN ×3 (09:53→21:19)
[2023-04-05 10:00] VITALS: BP 105/53; PULSE 72; RESP 15; TEMP 97.9; O2SAT 98
--- NOTE | 2023-04-05 11:11 | NUR ---
F/u 04/05: Pt PO ~17% first 3 clear liquid meals yesterday though was choking on clears this AM per RN. Per RN, to d/w MD regarding advancement to thickened full liquids diet. RD notified MD recommends SCORER SINGLE BSS though won't happen until 04/07 AM. 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 Dietary notified to send nectar thickened liquids in meantime w/ lunch given breakfast in tolerance pending new MD diet orders. Will monitor for further nutrition intervention needs this admit. Addendum: 04/05/23 at [address] Amended: Links added.
[2023-04-05 12:46] LABS: % IRON SATURATION 4 % (11-46); IRON 8 UG/DL (49-151); TOTAL IRON BINDING CAPACITY 199 UG/DL (259-388)
[2023-04-05 18:00] VITALS: BP 109/54; PULSE 70; RESP 14; TEMP 97.8; O2SAT 99
[2023-04-05] MEDS: ondansetron/PF 4mg/2ml inj IV PRN (19:16)
[2023-04-05] MEDS: enoxaparin 40mg/0.4ml syringe SQ SCH (21:18)
[2023-04-05] MEDS: insulin glargine (Lantus) pen - multi-dose SQ SCH (21:23)
[2023-04-05 22:00] VITALS: BP 120/54; PULSE 76; RESP 14; TEMP 97.8; O2SAT 98
[2023-04-05] MEDS: ALPRAZolam 0.5mg tablet PO PRN (22:18)
[2023-04-06] MEDS: ondansetron/PF 4mg/2ml inj IV PRN (04:52)
[2023-04-06 06:00] VITALS: BP 114/57; PULSE 71; RESP 14; TEMP 97.3; O2SAT 99
[2023-04-06 06:08] LABS: HEMOGLOBIN 13.6 g/dl (12.0-16.0); MEAN CORPUSCULAR VOLUME 71.6 FL (78-98)
[2023-04-06 06:11] LABS: HEMATOCRIT 44.8 % (35.0-45.0); MEAN CORPUSCULAR HEMOGLOBIN 21.8 PG (27.0-31.0); MEAN CORPUSCULAR HGB CONC 30.4 g/dL (33.0-36.5); MEAN PLATELET VOLUME 7.6 FL (7.4-10.4); RED BLOOD COUNT 6.25 X10'6 (4.20-5.60); RED CELL DISTRIBUTION WIDTH 21.7 % (11.5-14.5)
[2023-04-06 06:24] LABS: ALBUMIN/GLOBULIN RATIO 0.9 (1.1-1.5); ALKALINE PHOSPHATASE 63 IU/L (46-116); ANION GAP 8 (8-16); ASPARTATE AMINO TRANSFERASE 18 U/L (10-37); BILIRUBIN,TOTAL 0.4 MG/DL (0.1-1.0); BLOOD UREA NITROGEN 6 MG/DL (7-18); BUN/CREATININE RATIO 10.2 (10.0-20.0); CALCIUM 7.1 MG/DL (8.5-10.1); CHLORIDE 100 MMOL/L (99-107); CREATININE 0.59 MG/DL (0.40-0.90); GLUCOSE 68 MG/DL (70-104); MAGNESIUM 1.7 MG/DL (1.5-2.4); POTASSIUM 3.8 MMOL/L (3.5-5.1); SODIUM 130 MMOL/L (135-145); TOTAL CARBON DIOXIDE 21.7 MMOL/L (24-32); TOTAL PROTEIN 4.3 G/DL (6.4-8.2); eCRCL 64 ML/MIN; eGFR > 90 ML/MIN
[2023-04-06 06:25] LABS: ALANINE AMINOTRANSFERASE < 6 U/L (12-78)
--- NOTE | 2023-04-06 06:30 | NUR ---
Patient in room ORTHO 4009. I have received report from Brittany pereira and had the opportunity to ask questions and assume patient care.
[2023-04-06 06:54] LABS: PLATELET COUNT 1132 X10'3 (140-440)
[2023-04-06 07:24] LABS: ANISOCYTOSIS 3+; HYPOCHROMASIA 1+; MICROCYTOSIS 1+; PLATELET ESTIMATE INCREASED; TOTAL CELLS COUNTED 100
[2023-04-06 07:25] LABS: HYPERSEGMENTED NEUTROPHILS 1+; POLYCHROMASIA 1+
[2023-04-06 07:26] LABS: BURR CELLS 1+; ELLIPTOCYTES 1+
[2023-04-06 07:35] VITALS: RESP 20
[2023-04-06] MEDS: K and/or MAG REPLACEMENT MC SCH ×2 (08:00→20:00)
[2023-04-06 10:00] VITALS: BP 122/64; PULSE 74; RESP 18; TEMP 97.4; O2SAT 94
[2023-04-06] MEDS: MEROPENEM 1GM/NS 100ML IVPB 100 ML IV SCH ×2 (11:02→15:38)
[2023-04-06] MEDS: docusate sod 100mg capsule PO SCH ×2 (11:03→20:21)
[2023-04-06] MEDS: lactobacillus rhamnosus 10,000 MMU CELLS/CAPSULE PO SCH (11:03)
[2023-04-06] MEDS: levoTHYROXINE 112mcg tablet PO SCH (11:03)
[2023-04-06] MEDS: aspirin 81mg, enteric-coated 1 TAB TABLET.DR PO SCH (11:03)
[2023-04-06] MEDS: pantoprazole 40mg Tablet.DR PO SCH (11:03)
[2023-04-06] MEDS: clopidogrel 75mg tablet PO SCH (11:03)
[2023-04-06] MEDS: oxybutynin 5mg tablet PO SCH ×2 (11:03→20:19)
[2023-04-06] MEDS: HYDROcodone/acetaminophen 10/325mg tab PO PRN ×2 (15:39→20:21)
[2023-04-06] MEDS: normal saline 1000ml 1,000 ML IV SCH ×2 (17:32→19:50)
[2023-04-06 18:00] VITALS: BP 114/57; PULSE 71; RESP 14; TEMP 97.3; O2SAT 99
[2023-04-06] MEDS: enoxaparin 40mg/0.4ml syringe SQ SCH (20:22)
[2023-04-06] MEDS: insulin glargine (Lantus) pen - multi-dose SQ SCH (20:46)
--- NOTE | 2023-04-06 21:30 | NUR ---
called MD to request a diet for patient and also to inform him that routine Lantus at 22units, put patient BG at 64 in AM. Order to hold Lantus tonight.
[2023-04-06 22:00] VITALS: BP_SYST 123; BP_SYST 124; BP_DIAS 64; BP_DIAS 69; PULSE 80; PULSE 91; RESP 16; TEMP 98.1; O2SAT 100; O2SAT 96
--- NOTE | 2023-04-06 23:18 | NUR ---
Problems reprioritized. Patient report given, questions answered & plan of care reviewed with JESÚS Alexandre.
[2023-04-06] MEDS: ALPRAZolam 0.5mg tablet PO PRN (23:39)
[2023-04-07] MEDS: MEROPENEM 1GM/NS 100ML IVPB 100 ML IV SCH ×2 (00:04→08:18)
[2023-04-07] MEDS: normal saline 1000ml 1,000 ML IV SCH ×3 (02:59→23:30)
[2023-04-07 06:00] VITALS: BP 124/64; PULSE 73; RESP 16; TEMP 98.4; O2SAT 99
[2023-04-07 06:06] LABS: RED CELL DISTRIBUTION WIDTH 21.7 % (11.5-14.5)
[2023-04-07 06:09] LABS: HEMATOCRIT 45.5 % (35.0-45.0); HEMOGLOBIN 13.7 g/dl (12.0-16.0); MEAN CORPUSCULAR HEMOGLOBIN 21.5 PG (27.0-31.0); MEAN CORPUSCULAR VOLUME 71.8 FL (78-98); MEAN PLATELET VOLUME 7.4 FL (7.4-10.4); RED BLOOD COUNT 6.34 X10'6 (4.20-5.60); WHITE BLOOD COUNT 18.8 X10'3 (4.5-11.0)
[2023-04-07 06:17] LABS: PLATELET COUNT 1154 X10'3 (140-440)
[2023-04-07 06:27] LABS: ALANINE AMINOTRANSFERASE 8 U/L (12-78); ALBUMIN 1.9 G/DL (3.4-5.0); ALBUMIN/GLOBULIN RATIO 0.8 (1.1-1.5); ALKALINE PHOSPHATASE 69 IU/L (46-116); ANION GAP 7 (8-16); ASPARTATE AMINO TRANSFERASE 19 U/L (10-37); BILIRUBIN,TOTAL 0.3 MG/DL (0.1-1.0); BLOOD UREA NITROGEN 5 MG/DL (7-18); BUN/CREATININE RATIO 7.8 (10.0-20.0); CALCIUM 7.5 MG/DL (8.5-10.1); CHLORIDE 106 MMOL/L (99-107); CREATININE 0.64 MG/DL (0.40-0.90); GLUCOSE 114 MG/DL (70-104); MAGNESIUM 1.6 MG/DL (1.5-2.4); POTASSIUM 3.6 MMOL/L (3.5-5.1); SODIUM 135 MMOL/L (135-145); TOTAL CARBON DIOXIDE 21.7 MMOL/L (24-32); TOTAL PROTEIN 4.2 G/DL (6.4-8.2); eCRCL 59 ML/MIN; eGFR 88 ML/MIN
[2023-04-07 08:00] VITALS: RESP 20
[2023-04-07] MEDS: K and/or MAG REPLACEMENT MC SCH ×2 (08:00→20:04)
[2023-04-07 08:18] LABS: ANISOCYTOSIS 3+; LARGE PLATELETS FEW; PLATELET ESTIMATE INCREASED; TOTAL CELLS COUNTED 100
[2023-04-07] MEDS: docusate sod 100mg capsule PO SCH ×2 (08:18→19:38)
[2023-04-07] MEDS: levoTHYROXINE 112mcg tablet PO SCH (08:18)
[2023-04-07] MEDS: clopidogrel 75mg tablet PO SCH (08:18)
[2023-04-07] MEDS: oxybutynin 5mg tablet PO SCH ×2 (08:18→19:38)
[2023-04-07] MEDS: aspirin 81mg, enteric-coated 1 TAB TABLET.DR PO SCH (08:18)
[2023-04-07] MEDS: lactobacillus rhamnosus 10,000 MMU CELLS/CAPSULE PO SCH (08:18)
[2023-04-07 08:19] LABS: ELLIPTOCYTES 1+; SCHISTOCYTES FEW
[2023-04-07] MEDS: pantoprazole 40mg Tablet.DR PO SCH (08:19)
[2023-04-07 08:20] LABS: BURR CELLS 1+; TEAR DROP CELLS FEW
[2023-04-07 08:21] LABS: MICROCYTOSIS 1+; POLYCHROMASIA FEW
[2023-04-07] MEDS ORDERED: bisacodyl 10mg suppository rectal RC PRN (08:35)
[2023-04-07] MEDS ORDERED: magnesium hydroxide 30ml (MOM) UD suspension PO PRN (08:35)
[2023-04-07 10:00] VITALS: BP 129/65; PULSE 73; RESP 16; TEMP 98.3; O2SAT 98
[2023-04-07] MEDS: CefTRIAXone 2gm/D5W 50ml BAG 50 ML IV SCH (12:06)
--- NOTE | 2023-04-07 13:44 | NUR ---
PRESSURE ULCER EDUCATION: DEFINITION: A pressure ulcer is an area of skin that breaks down when you stay in one position too long. The constant pressure against the skin reduces the blood flow to that area and the affected tissue dies. CAUSES: "Being bedridden or in a wheelchair "Fragile skin "Having a chronic condition, such as diabetes or vascular disease "Inability to move certain parts of your body without assistance "Older age "Incontinence of urine or stool SYMPTOMS: "A reddened area that DOES NOT turn white when pressed on - this can be the beginning of a pressure ulcer "A blister, deep sore or a crater - these can be advanced pressure ulcers FIRST AID: "Relieve the pressure on this area "Keep the area clean and dry "Call your primary doctor if you see any of the above symptoms "DO NOT massage the area "DO NOT use a donut shaped or ring shaped pillow- these actually interfere with the blood flow and cause complications PREVENTION: "Check for pressure ulcers everyday "Change position at least every two hours to relieve pressure "Use items that help relieve pressure- pillows, sheepskin, foam padding, and powders. "Keep skin clean and dry "Eat healthy well balanced meals "Exercise daily IF YOU SEE ANY OF THESE SYMPTOMS WHILE IN THE HOSPITAL - TELL YOUR NURSE IMMEDIATELY. IF YOU SEE ANY OF THESE SYMPTOMS WHILE AT HOME OR HAVE ANY QUESTIONS OR CONCERNS ABOUT PRESSURE ULCERS - CALL YOUR PRIMARY DOCTOR IMMEDIATELY. Addendum: 04/07/23 at 1344 by Narendra Sawant RN Amended: Links added.
[2023-04-07 18:00] VITALS: BP 127/59; PULSE 74; RESP 18; TEMP 98.3; O2SAT 99
--- NOTE | 2023-04-07 18:00 | NUR ---
Received report from AM shift Nurse Maria Esther. Pt visiting with family. No s/s of distress at this time.
--- NOTE | 2023-04-07 18:01 | NUR ---
F/u 04/07: Pt is now on minced moist and nectar thick liquids diet per DICTATING MACHINE TYPIST today, no documented PO intake yet for new diet order. Pt prior on clear liquids with average PO intake of 25% x2 meals not meeting estimated nutrient needs since last follow up. Per [facility] note 04/07 pt's bilateral buttock area bright red and blanching skin with moisture associated skin damage and groin are bright red skin with no apparent skin breakdown. No BM this admit continues receiving routine colace per EMR. Will continue to follow and make recommendations as appropriate. Recommendation: 1.continue minced and moist / nectar thick liquids per DICTATING MACHINE TYPIST 2. monitor PO intake on new texture diet and need for ONS 3. routine bowel care 4. scaled wt this admit;subsequent weekly scaled wt Addendum: 04/07/23 at [address] Amended: Links added.
--- NOTE | 2023-04-07 18:05 | NUR ---
F/u 04/07: Pt is now on minced moist and nectar thick liquids diet per HOUSECALLS NURSE today, no documented PO intake yet for new diet order. Pt prior on clear liquids with average PO intake of 25% x2 meals not meeting estimated nutrient needs since last follow up. Per [facility] note 04/07 pt's bilateral buttock area bright red and blanching skin with moisture associated skin damage and groin are bright red skin with no apparent skin breakdown. No BM this admit continues receiving routine colace per EMR. Will continue to follow and make recommendations as appropriate. Recommendation: 1.continue minced and moist / nectar thick liquids per HOUSECALLS NURSE 2. monitor PO intake on new texture diet and need for ONS 3. routine bowel care 4. scaled wt this admit;subsequent weekly scaled wt Addendum: 04/07/23 at [address] Amended: Links added.
[2023-04-07] MEDS: HYDROcodone/acetaminophen 10/325mg tab PO PRN (19:22)
[2023-04-07] MEDS: nystatin 15 GM powder TP SCH (19:42)
[2023-04-07] MEDS: enoxaparin 40mg/0.4ml syringe SQ SCH (19:42)
[2023-04-07 20:20] VITALS: RESP 16; O2SAT 95
[2023-04-07] MEDS: insulin glargine (Lantus) pen - multi-dose SQ SCH (21:41)
[2023-04-07] MEDS: ALPRAZolam 0.5mg tablet PO PRN (21:45)
[2023-04-07 22:00] VITALS: BP 137/68; PULSE 81; RESP 16; TEMP 98.1; O2SAT 98
[2023-04-08] MEDS: HYDROcodone/acetaminophen 10/325mg tab PO PRN ×4 (00:12→20:01)
[2023-04-08] MEDS: ondansetron/PF 4mg/2ml inj IV PRN ×3 (04:46→21:13)
[2023-04-08 06:00] VITALS: BP 118/58; PULSE 66; RESP 15; TEMP 98; O2SAT 99
--- NOTE | 2023-04-08 06:54 | NUR ---
DRYING FRAME OPERATOR documentation: I have reviewed and agree with assessment performed and documented by KELECHI.
[2023-04-08 07:24] LABS: EOSINOPHILS # (AUTO) 0.7 X10'3 (0-0.9); EOSINOPHILS % (AUTO) 3.3 % (0-6); LYMPHOCYTES # (AUTO) 2.1 X10'3 (1.1-4.8); LYMPHOCYTES % (AUTO) 9.3 % (21-51); MEAN PLATELET VOLUME 7.3 FL (7.4-10.4); MONOCYTES # (AUTO) 0.4 X10'3 (0-0.9); MONOCYTES % (AUTO) 1.9 % (2-12); NEUTROPHILS # (AUTO) 18.3 X10'3 (1.8-7.7); WHITE BLOOD COUNT 22.3 X10'3 (4.5-11.0)
[2023-04-08 07:42] LABS: ALANINE AMINOTRANSFERASE 7 U/L (12-78); ALBUMIN 2.2 G/DL (3.4-5.0); ALBUMIN/GLOBULIN RATIO 0.9 (1.1-1.5); ALKALINE PHOSPHATASE 72 IU/L (46-116); ANION GAP 8 (8-16); ASPARTATE AMINO TRANSFERASE 17 U/L (10-37); BILIRUBIN,TOTAL 0.4 MG/DL (0.1-1.0); BLOOD UREA NITROGEN 6 MG/DL (7-18); BUN/CREATININE RATIO 10.3 (10.0-20.0); CALCIUM 7.5 MG/DL (8.5-10.1); CHLORIDE 105 MMOL/L (99-107); CREATININE 0.58 MG/DL (0.40-0.90); GLUCOSE 61 MG/DL (70-104); MAGNESIUM 1.5 MG/DL (1.5-2.4); POTASSIUM 3.7 MMOL/L (3.5-5.1); SODIUM 135 MMOL/L (135-145); TOTAL CARBON DIOXIDE 21.6 MMOL/L (24-32); TOTAL PROTEIN 4.6 G/DL (6.4-8.2); eCRCL 65 ML/MIN; eGFR > 90 ML/MIN
[2023-04-08 07:45] VITALS: RESP 20
[2023-04-08] MEDS: K and/or MAG REPLACEMENT MC SCH ×2 (08:00→20:00)
[2023-04-08 08:06] LABS: RED BLOOD COUNT 6.55 X10'6 (4.20-5.60)
[2023-04-08 08:07] LABS: HEMATOCRIT 45.6 % (35.0-45.0); MEAN CORPUSCULAR HGB CONC 31.5 g/dL (33.0-36.5); MEAN CORPUSCULAR VOLUME 69.7 FL (78-98)
[2023-04-08 08:10] LABS: HEMOGLOBIN 14.4 g/dl (12.0-16.0)
[2023-04-08 08:15] LABS: PLATELET COUNT 1454 X10'3 (140-440)
[2023-04-08 08:57] LABS: C-REACTIVE PROTEIN 0.07 MG/DL (0.0-0.5)
[2023-04-08 10:00] VITALS: BP 126/65; PULSE 75; RESP 18; TEMP 98.2; O2SAT 98
[2023-04-08] MEDS: CefTRIAXone 2gm/D5W 50ml BAG 50 ML IV SCH (10:19)
[2023-04-08] MEDS: docusate sod 100mg capsule PO SCH ×2 (10:20→20:00)
[2023-04-08] MEDS: aspirin 81mg, enteric-coated 1 TAB TABLET.DR PO SCH (10:20)
[2023-04-08] MEDS: lactobacillus rhamnosus 10,000 MMU CELLS/CAPSULE PO SCH (10:20)
[2023-04-08] MEDS: levoTHYROXINE 112mcg tablet PO SCH (10:21)
[2023-04-08] MEDS: clopidogrel 75mg tablet PO SCH (10:21)
[2023-04-08] MEDS: pantoprazole 40mg Tablet.DR PO SCH (10:21)
[2023-04-08] MEDS: oxybutynin 5mg tablet PO SCH ×2 (10:21→20:00)
[2023-04-08] MEDS: nystatin 15 GM powder TP SCH ×2 (10:22→21:06)
[2023-04-08 10:32] LABS: ANISOCYTOSIS 3+; LARGE PLATELETS FEW; MICROCYTOSIS 1+; PLATELET ESTIMATE INCREASED; TOTAL CELLS COUNTED 100
[2023-04-08 10:33] LABS: ELLIPTOCYTES 1+
[2023-04-08 10:34] LABS: BURR CELLS FEW
[2023-04-08 10:36] LABS: BASOPHILS % (AUTO) 0 % (0-1)
[2023-04-08] MEDS: HYDROmorphone inj. 0.5 MG/0.5 ML DISP.SYRIN IV PRN ×2 (14:59→21:05)
--- NOTE | 2023-04-08 15:44 | NUR ---
Rishabh Consult: Robbi Keating 12 per EMR. Per [facility] note, sacrum red otherwise no wounds. Addendum: 04/08/23 at [address] Amended: Links added.
[2023-04-08 18:00] VITALS: BP 130/66; PULSE 78; RESP 16; TEMP 98.7; O2SAT 98
--- NOTE | 2023-04-08 18:00 | NUR ---
Patient in room ORTHO 4018. I have received report from JESÚS Mayo and had the opportunity to ask questions and assume patient care.
[2023-04-08 18:16] LABS: APTT 39 SECONDS (22-32); D-DIMER 0.39 MG/L FEU (0-0.50); INR 1.3 INR; PROTHROMBIN TIME 13.5 SECONDS (9.0-12.0)
[2023-04-08] MEDS: enoxaparin 40mg/0.4ml syringe SQ SCH ×2 (20:00→20:06)
[2023-04-08] MEDS: normal saline 1000ml 1,000 ML IV SCH (20:01)
[2023-04-08] MEDS: insulin glargine (Lantus) pen - multi-dose SQ SCH (21:17)
[2023-04-08 22:00] VITALS: BP 127/71; PULSE 80; RESP 16; TEMP 98.5; O2SAT 96
--- NOTE | 2023-04-08 23:55 | NUR ---
Theraputic phebotomy finished with help from Dawna Collins RN. 350ml blood taken from pt with 50cc syringes per policy.
[2023-04-09] MEDS: HYDROcodone/acetaminophen 10/325mg tab PO PRN ×2 (00:33→19:49)
[2023-04-09] MEDS: ALPRAZolam 0.5mg tablet PO PRN (00:58)
--- NOTE | 2023-04-09 01:02 | NUR ---
Only able to take 350ml blood without ruining IV Dr. Langford aware.
[2023-04-09] MEDS: normal saline 1000ml 1,000 ML IV SCH (03:33)
[2023-04-09 06:00] VITALS: BP 135/69; PULSE 73; RESP 16; TEMP 98.5; O2SAT 99
--- NOTE | 2023-04-09 06:30 | NUR ---
Problems reprioritized. Patient report given, questions answered & plan of care reviewed with JESÚS Oliver.
[2023-04-09 06:56] LABS: BASOPHILS % (AUTO) 4.1 % (0-1); MONOCYTES # (AUTO) 0.2 X10'3 (0-0.9); NEUTROPHILS # (AUTO) 10.7 X10'3 (1.8-7.7)
[2023-04-09 06:57] LABS: BASOPHILS # (AUTO) 0.6 X10'3 (0-0.2); EOSINOPHILS # (AUTO) 0.4 X10'3 (0-0.9); EOSINOPHILS % (AUTO) 3.2 % (0-6); LYMPHOCYTES # (AUTO) 1.5 X10'3 (1.1-4.8); LYMPHOCYTES % (AUTO) 10.9 % (21-51); MEAN PLATELET VOLUME 7.2 FL (7.4-10.4); MONOCYTES % (AUTO) 1.7 % (2-12); NEUTROPHILS % (AUTO) 80.1 % (42-75); WHITE BLOOD COUNT 13.4 X10'3 (4.5-11.0)
--- NOTE | 2023-04-09 07:06 | NUR ---
Patient in room ORTHO 4018. I have received report from rosanna castro and had the opportunity to ask questions and assume patient care.
[2023-04-09 07:37] LABS: HEMATOCRIT 39.9 % (35.0-45.0); HEMOGLOBIN 12.1 g/dl (12.0-16.0); MEAN CORPUSCULAR HEMOGLOBIN 21.1 PG (27.0-31.0); MEAN CORPUSCULAR HGB CONC 30.4 g/dL (33.0-36.5); MEAN CORPUSCULAR VOLUME 69.6 FL (78-98); RED BLOOD COUNT 5.73 X10'6 (4.20-5.60)
[2023-04-09 07:38] LABS: RED CELL DISTRIBUTION WIDTH 20.7 % (11.5-14.5)
[2023-04-09 07:40] LABS: ALBUMIN 1.8 G/DL (3.4-5.0); ALBUMIN/GLOBULIN RATIO 0.8 (1.1-1.5); ALKALINE PHOSPHATASE 63 IU/L (46-116); ANION GAP 5 (8-16); ASPARTATE AMINO TRANSFERASE 16 U/L (10-37); BILIRUBIN,TOTAL 0.3 MG/DL (0.1-1.0); BLOOD UREA NITROGEN 8 MG/DL (7-18); BUN/CREATININE RATIO 14.8 (10.0-20.0); CALCIUM 7.4 MG/DL (8.5-10.1); CHLORIDE 105 MMOL/L (99-107); CREATININE 0.54 MG/DL (0.40-0.90); GLUCOSE 75 MG/DL (70-104); MAGNESIUM 1.4 MG/DL (1.5-2.4); SODIUM 133 MMOL/L (135-145); TOTAL CARBON DIOXIDE 23.3 MMOL/L (24-32); TOTAL PROTEIN 4.1 G/DL (6.4-8.2); eCRCL 70 ML/MIN; eGFR > 90 ML/MIN
[2023-04-09 07:46] LABS: PLATELET COUNT 1073 X10'3 (140-440)
[2023-04-09 07:54] LABS: ALANINE AMINOTRANSFERASE 6 U/L (12-78)
[2023-04-09 08:00] VITALS: RESP 18; O2SAT 98
[2023-04-09] MEDS: K and/or MAG REPLACEMENT MC SCH ×2 (08:00→20:00)
[2023-04-09] MEDS: pantoprazole 40mg Tablet.DR PO SCH (08:01)
[2023-04-09] MEDS: levoTHYROXINE 112mcg tablet PO SCH (08:01)
[2023-04-09] MEDS: clopidogrel 75mg tablet PO SCH (08:01)
[2023-04-09] MEDS: aspirin 81mg, enteric-coated 1 TAB TABLET.DR PO SCH (08:01)
[2023-04-09] MEDS: lactobacillus rhamnosus 10,000 MMU CELLS/CAPSULE PO SCH (08:01)
[2023-04-09] MEDS: docusate sod 100mg capsule PO SCH ×2 (08:01→19:52)
[2023-04-09] MEDS: nystatin 15 GM powder TP SCH ×2 (08:02→20:00)
[2023-04-09] MEDS: oxybutynin 5mg tablet PO SCH ×2 (08:02→19:49)
[2023-04-09] MEDS: CefTRIAXone 2gm/D5W 50ml BAG 50 ML IV SCH (08:02)
[2023-04-09] MEDS: ondansetron/PF 4mg/2ml inj IV PRN (08:39)
--- NOTE | 2023-04-09 08:57 | NUR ---
Page Sent PAGER ID: [phone] MESSAGE: [email or web address] elizabeth pt has a PLT of 1073, bs of 54 gave glucose tabs. lisa [phone]
--- NOTE | 2023-04-09 09:00 | NUR ---
Page Sent PAGER ID: [phone] MESSAGE: [phone] rocío johnson has a mg 1.4 can i get a replacement order. lisa [phone]
[2023-04-09 10:00] VITALS: BP 129/56; PULSE 74; RESP 18; TEMP 98.5
--- NOTE | 2023-04-09 11:53 | NUR ---
PER DR JUSTIN PT DOES NOT NEED THERAPEUTIC PHLEBOTOMY SHE CAN DO THIS OUT PT.
[2023-04-09] MEDS ORDERED: magnesium oxide 400mg tablet PO ONE (11:55)
--- NOTE | 2023-04-09 13:20 | NUR ---
PER DR JUSTIN PT CAN DO CT OUT PATIENT AND PER DR BAUTISTA ORDERS PT NEEDS MIDLINE FOR ABX TO DC.
--- NOTE | 2023-04-09 15:20 | NUR ---
paged picc about pt needing a midline for abx for dc
[2023-04-09 18:00] VITALS: BP 146/70; PULSE 82; RESP 18; TEMP 98.3; O2SAT 97
--- NOTE | 2023-04-09 18:30 | NUR ---
Patient in room ORTHO 4018. I have received report from Mayra ESPINOSA and had the opportunity to ask questions and assume patient care.
--- NOTE | 2023-04-09 18:55 | NUR ---
Paged Dr. Dominguez: "pt has been trending low on BG in am. BG this AM 54. Pt has 22 units of Lantus as a give, can we adjust this dosage lower?"
--- NOTE | 2023-04-09 19:31 | NUR ---
Problems reprioritized. Patient report given, questions answered & plan of care reviewed with linus jean.
[2023-04-09 22:00] VITALS: BP 144/73; PULSE 80; RESP 15; TEMP 97.7; O2SAT 97
[2023-04-09] MEDS: insulin glargine (Lantus) pen - multi-dose SQ SCH (22:03)
[2023-04-09] MEDS: HYDROmorphone inj. 0.5 MG/0.5 ML DISP.SYRIN IV PRN (22:30)
[2023-04-10] MEDS: HYDROcodone/acetaminophen 10/325mg tab PO PRN ×3 (02:31→16:51)
--- NOTE | 2023-04-10 05:00 | NUR ---
LOLA documentation: I have reviewed and agree with all interventions, assessments performed and documented by Catalino DAVILA.
--- NOTE | 2023-04-10 06:21 | NUR ---
Problems reprioritized. Patient report given, questions answered & plan of care reviewed with Jessenia ESPINOSA.
[2023-04-10 06:44] VITALS: BP 135/68; PULSE 75; RESP 15; TEMP 97.8; O2SAT 98
[2023-04-10 08:00] VITALS: RESP 17; O2SAT 98
[2023-04-10] MEDS: K and/or MAG REPLACEMENT MC SCH ×2 (08:00→20:00)
[2023-04-10] MEDS: aspirin 81mg, enteric-coated 1 TAB TABLET.DR PO SCH (08:01)
[2023-04-10] MEDS: CefTRIAXone 2gm/D5W 50ml BAG 50 ML IV SCH (08:01)
[2023-04-10] MEDS: lactobacillus rhamnosus 10,000 MMU CELLS/CAPSULE PO SCH (08:01)
[2023-04-10] MEDS: docusate sod 100mg capsule PO SCH ×2 (08:02→21:19)
[2023-04-10] MEDS: nystatin 15 GM powder TP SCH ×2 (08:02→20:00)
[2023-04-10] MEDS: oxybutynin 5mg tablet PO SCH ×2 (08:02→21:19)
[2023-04-10] MEDS: pantoprazole 40mg Tablet.DR PO SCH (08:02)
[2023-04-10] MEDS: levoTHYROXINE 112mcg tablet PO SCH (08:02)
[2023-04-10] MEDS: clopidogrel 75mg tablet PO SCH (08:02)
[2023-04-10] MEDS: normal saline 1000ml 1,000 ML IV SCH ×2 (08:05→08:12)
[2023-04-10 10:00] VITALS: BP 122/65; PULSE 72; RESP 16; TEMP 97.9; O2SAT 98
--- NOTE | 2023-04-10 10:34 | NUR ---
F/u 04/10: Pt continues minced moist/nectar thick and carbohydrate controlled diet with average PO intake 73% x 6 meals. Carbohydrate controlled restriction not warranted due to good glucose control and A1c <7%. Overall PO intake has improved significantly which met 94% of estimated kcal needs and 83% of protein needs since last follow up. Noted pt had two bowel movements on 04/09 receiving bowel care per EMR. Recommendation: 1.continue minced and moist / nectar thick liquids per PRE SALES TECHNICAL ENGINEER 2. monitor PO intake on new texture diet and need for ONS 3. routine bowel care 4. scaled wt this admit;subsequent weekly scaled wt Addendum: 04/10/23 at [address] Amended: Links added.
[2023-04-10 18:00] VITALS: BP 147/74; PULSE 85; RESP 16; TEMP 98.5; O2SAT 95
--- NOTE | 2023-04-10 18:50 | NUR ---
Patient in room ORTHO 4016. I have received report from Jessenia ESPINOSA and had the opportunity to ask questions and assume patient care.
[2023-04-10] MEDS: insulin glargine (Lantus) pen - multi-dose SQ SCH (21:16)
[2023-04-10] MEDS: HYDROcodone/acetaminophen 5mg/325mg tablet PO PRN (21:18)
[2023-04-10] MEDS: enoxaparin 40mg/0.4ml syringe SQ SCH (21:18)
[2023-04-10 22:00] VITALS: BP 154/80; PULSE 80; RESP 15; TEMP 98.2; O2SAT 96
[2023-04-11] MEDS: ondansetron/PF 4mg/2ml inj IV PRN (00:16)
[2023-04-11] MEDS: normal saline 1000ml 1,000 ML IV SCH ×2 (04:23→12:45)
[2023-04-11 06:00] VITALS: BP 153/85; PULSE 77; RESP 16; TEMP 98.3; O2SAT 2
--- NOTE | 2023-04-11 06:19 | NUR ---
Problems reprioritized. Patient report given, questions answered & plan of care reviewed with Ana DAVILA.
--- NOTE | 2023-04-11 06:45 | NUR ---
I agree with CENTRIFUGAL SPINNER physical assessment
[2023-04-11 08:00] VITALS: RESP 16; O2SAT 96
[2023-04-11] MEDS: K and/or MAG REPLACEMENT MC SCH ×2 (08:00→20:00)
[2023-04-11] MEDS: pantoprazole 40mg Tablet.DR PO SCH (08:00)
[2023-04-11] MEDS: docusate sod 100mg capsule PO SCH ×2 (08:00→21:35)
[2023-04-11] MEDS: aspirin 81mg, enteric-coated 1 TAB TABLET.DR PO SCH (08:00)
[2023-04-11] MEDS: nystatin 15 GM powder TP SCH ×2 (08:57→21:40)
[2023-04-11] MEDS: insulin Lispro (HumaLOG) vial - multi-dose SQ SCH ×2 (09:07→19:12)
[2023-04-11] MEDS: lactobacillus rhamnosus 10,000 MMU CELLS/CAPSULE PO SCH (09:09)
[2023-04-11] MEDS: oxybutynin 5mg tablet PO SCH ×2 (09:10→21:34)
[2023-04-11] MEDS: clopidogrel 75mg tablet PO SCH (09:11)
[2023-04-11] MEDS: levoTHYROXINE 112mcg tablet PO SCH (09:12)
[2023-04-11 10:00] VITALS: BP 140/74; PULSE 78; RESP 18; TEMP 97.4; O2SAT 100
[2023-04-11] MEDS: CefTRIAXone 2gm/D5W 50ml BAG 50 ML IV SCH (10:04)
[2023-04-11] MEDS: HYDROcodone/acetaminophen 10/325mg tab PO PRN ×3 (10:08→21:48)
--- NOTE | 2023-04-11 15:23 | NUR ---
COMMUNITY SUPPORT PROFESSIONAL documentation: I have reviewed and agree with all interventions, assessments performed and documented by Ana Forbes LVN.
[2023-04-11 18:00] VITALS: BP 138/71; PULSE 73; RESP 18; TEMP 97.4; O2SAT 99
--- NOTE | 2023-04-11 18:11 | NUR ---
Problems reprioritized. Patient report given, questions answered & plan of care reviewed with JESÚS Bautista.
--- NOTE | 2023-04-11 18:45 | NUR ---
Patient in room ORTHO 4018. I have received report from RAKESH DAVILA and had the opportunity to ask questions and assume patient care.
[2023-04-11 20:00] VITALS: RESP 16; O2SAT 98
[2023-04-11] MEDS: insulin glargine (Lantus) pen - multi-dose SQ SCH (21:37)
[2023-04-11] MEDS: enoxaparin 40mg/0.4ml syringe SQ SCH (21:39)
[2023-04-11 22:00] VITALS: BP 141/62; PULSE 70; RESP 16; TEMP 97.7; O2SAT 98
[2023-04-12 06:00] VITALS: BP 150/70; PULSE 68; RESP 16; TEMP 97.8; O2SAT 98
--- NOTE | 2023-04-12 06:42 | NUR ---
Patient in room ORTHO 4018. I have received report from and had the opportunity to ask questions and assume patient care. Addendum: 04/12/23 at 0643 by Lily Alvarez RN Problems reprioritized. Patient report given, questions answered & plan of care reviewed with VARSHA ESPINOSA.
[2023-04-12 08:00] VITALS: RESP 16; O2SAT 98
[2023-04-12] MEDS: K and/or MAG REPLACEMENT MC SCH ×2 (08:00→20:00)
[2023-04-12] MEDS: insulin Lispro (HumaLOG) vial - multi-dose SQ SCH ×2 (08:53→13:16)
[2023-04-12] MEDS: HYDROcodone/acetaminophen 10/325mg tab PO PRN ×4 (08:54→14:30)
[2023-04-12] MEDS: nystatin 15 GM powder TP SCH (08:54)
[2023-04-12] MEDS: lactobacillus rhamnosus 10,000 MMU CELLS/CAPSULE PO SCH (08:54)
[2023-04-12] MEDS: pantoprazole 40mg Tablet.DR PO SCH (08:54)
[2023-04-12] MEDS: oxybutynin 5mg tablet PO SCH (08:55)
[2023-04-12] MEDS: clopidogrel 75mg tablet PO SCH (08:55)
[2023-04-12] MEDS: docusate sod 100mg capsule PO SCH (08:55)
[2023-04-12] MEDS: levoTHYROXINE 112mcg tablet PO SCH (08:55)
[2023-04-12] MEDS: aspirin 81mg, enteric-coated 1 TAB TABLET.DR PO SCH (08:55)
[2023-04-12] MEDS: CefTRIAXone 2gm/D5W 50ml BAG 50 ML IV SCH (08:56)
[2023-04-12] MEDS: normal saline 1000ml 1,000 ML IV SCH (08:56)
[2023-04-12] MEDS: diphenhydrAMINE 2%/zinc acetate cream TP SCH ×3 (08:57→21:35)
[2023-04-12] MEDS: ondansetron/PF 4mg/2ml inj IV PRN (09:01)
[2023-04-12 10:00] VITALS: BP 141/73; PULSE 78; RESP 16; TEMP 99; O2SAT 97
[2023-04-12] MEDS ORDERED: HYDROmorphone inj. 0.5 MG/0.5 ML DISP.SYRIN IV PRN (11:20)
[2023-04-12] MEDS ORDERED: HYDROmorphone/PF 0.2 MG/ML SYRINGE IV PRN (11:20)
[2023-04-12 11:42] LABS: MEAN CORPUSCULAR HGB CONC 29.8 g/dL (33.0-36.5)
[2023-04-12 11:44] LABS: BASOPHILS # (AUTO) 0.1 X10'3 (0-0.2); BASOPHILS % (AUTO) 2.2 % (0-1); EOSINOPHILS # (AUTO) 0.1 X10'3 (0-0.9); EOSINOPHILS % (AUTO) 3.6 % (0-6); HEMOGLOBIN 13.1 g/dl (12.0-16.0); LYMPHOCYTES # (AUTO) 0.6 X10'3 (1.1-4.8); LYMPHOCYTES % (AUTO) 20.6 % (21-51); MEAN CORPUSCULAR HEMOGLOBIN 21.2 PG (27.0-31.0); MEAN PLATELET VOLUME 7.2 FL (7.4-10.4); MONOCYTES # (AUTO) 0.1 X10'3 (0-0.9); MONOCYTES % (AUTO) 3.8 % (2-12); NEUTROPHILS # (AUTO) 2.1 X10'3 (1.8-7.7); NEUTROPHILS % (AUTO) 69.8 % (42-75); PLATELET COUNT 850 X10'3 (140-440); RED CELL DISTRIBUTION WIDTH 21.7 % (11.5-14.5)
[2023-04-12 11:49] LABS: ALBUMIN/GLOBULIN RATIO 0.8 (1.1-1.5); ALKALINE PHOSPHATASE 65 IU/L (46-116); ANION GAP 2 (8-16); ASPARTATE AMINO TRANSFERASE 11 U/L (10-37); BILIRUBIN,TOTAL 0.2 MG/DL (0.1-1.0); BLOOD UREA NITROGEN 11 MG/DL (7-18); BUN/CREATININE RATIO 19.6 (10.0-20.0); CALCIUM 7.7 MG/DL (8.5-10.1); CHLORIDE 98 MMOL/L (99-107); CREATININE 0.56 MG/DL (0.40-0.90); GLUCOSE 130 MG/DL (70-104); POTASSIUM 4.3 MMOL/L (3.5-5.1); SODIUM 130 MMOL/L (135-145); TOTAL CARBON DIOXIDE 30.1 MMOL/L (24-32); TOTAL PROTEIN 4.6 G/DL (6.4-8.2); eCRCL 67 ML/MIN; eGFR > 90 ML/MIN
[2023-04-12 12:05] LABS: ALANINE AMINOTRANSFERASE < 6 U/L (12-78)
[2023-04-12 12:26] LABS: TOTAL CELLS COUNTED 100
[2023-04-12 12:27] LABS: ANISOCYTOSIS 3+; MICROCYTOSIS 1+; PLATELET ESTIMATE INCREASED
[2023-04-12 12:42] VITALS: RESP 16; O2SAT 98
[2023-04-12] MEDS ORDERED: ondansetron/PF 4mg/2ml inj IV ONE (14:10)
[2023-04-12] MEDS ORDERED: ondansetron/PF 4mg/2ml inj IV PRN (14:10)
[2023-04-12] MEDS ORDERED: HYDROcodone/acetaminophen 5mg/325mg tablet PO PRN (15:55)
--- NOTE | 2023-04-12 16:00 | NUR ---
Pts h/h after 1st unit was h/h 6.[address] hinojosa was contcted
[2023-04-12] MEDS: clotrimazole topical cream 15gm tube TP SCH (16:30)
[2023-04-12] MEDS: NYSTATIN CREAM - 30GM TUBE TP SCH ×2 (16:30→20:00)
[2023-04-12] MEDS: clindamycin 1% topical susp 60ml bottle TP SCH ×2 (16:30→20:00)
[2023-04-12 20:00] VITALS: RESP 16; O2SAT 96
[2023-04-12] MEDS: enoxaparin 40mg/0.4ml syringe SQ SCH (21:34)
[2023-04-12] MEDS: insulin glargine (Lantus) pen - multi-dose SQ SCH (21:48)
[2023-04-13] MEDS: normal saline 1000ml 1,000 ML IV SCH ×2 (01:26→14:17)
[2023-04-13 06:00] VITALS: BP 153/75; PULSE 68; RESP 15; TEMP 97.8; O2SAT 98
--- NOTE | 2023-04-13 06:22 | NUR ---
Problems reprioritized. Patient report given, questions answered & plan of care reviewed with KARYNA ESPINOSA.
[2023-04-13] MEDS: CefTRIAXone 2gm/D5W 50ml BAG 50 ML IV SCH (07:18)
[2023-04-13] MEDS: clopidogrel 75mg tablet PO SCH (07:19)
[2023-04-13] MEDS: aspirin 81mg, enteric-coated 1 TAB TABLET.DR PO SCH (07:19)
[2023-04-13] MEDS: pantoprazole 40mg Tablet.DR PO SCH (07:20)
[2023-04-13] MEDS: levoTHYROXINE 112mcg tablet PO SCH (07:20)
[2023-04-13] MEDS: lactobacillus rhamnosus 10,000 MMU CELLS/CAPSULE PO SCH (07:21)
[2023-04-13] MEDS: HYDROcodone/acetaminophen 10/325mg tab PO PRN ×3 (07:21→21:05)
[2023-04-13] MEDS: diphenhydrAMINE 2%/zinc acetate cream TP SCH ×2 (07:22→13:02)
[2023-04-13 08:00] VITALS: RESP 15; O2SAT 98
[2023-04-13] MEDS: K and/or MAG REPLACEMENT MC SCH ×2 (08:00→20:00)
[2023-04-13] MEDS: insulin Lispro (HumaLOG) vial - multi-dose SQ SCH ×2 (08:38→18:55)
[2023-04-13] MEDS: clindamycin 1% topical susp 60ml bottle TP SCH ×2 (08:44→21:08)
[2023-04-13] MEDS: clotrimazole topical cream 15gm tube TP SCH (08:44)
[2023-04-13] MEDS: NYSTATIN CREAM - 30GM TUBE TP SCH ×2 (08:44→20:00)
[2023-04-13 10:00] VITALS: BP 115/60; PULSE 74; RESP 16; TEMP 98.6; O2SAT 99
[2023-04-13 10:25] LABS: EOSINOPHILS # (AUTO) 0.1 X10'3 (0-0.9); LYMPHOCYTES # (AUTO) 0.6 X10'3 (1.1-4.8); MONOCYTES # (AUTO) 0.2 X10'3 (0-0.9); NEUTROPHILS # (AUTO) 3.1 X10'3 (1.8-7.7)
[2023-04-13 10:27] LABS: BASOPHILS % (AUTO) 1.1 % (0-1); EOSINOPHILS % (AUTO) 2.6 % (0-6); HEMOGLOBIN 13.1 g/dl (12.0-16.0); LYMPHOCYTES % (AUTO) 14.4 % (21-51); MEAN CORPUSCULAR HEMOGLOBIN 21.3 PG (27.0-31.0); MEAN CORPUSCULAR HGB CONC 29.8 g/dL (33.0-36.5); MEAN CORPUSCULAR VOLUME 71.4 FL (78-98); MEAN PLATELET VOLUME 7.2 FL (7.4-10.4); MONOCYTES % (AUTO) 4.3 % (2-12); NEUTROPHILS % (AUTO) 77.6 % (42-75); PLATELET COUNT 700 X10'3 (140-440); RED BLOOD COUNT 6.16 X10'6 (4.20-5.60); RED CELL DISTRIBUTION WIDTH 21.5 % (11.5-14.5); WHITE BLOOD COUNT 4.1 X10'3 (4.5-11.0)
[2023-04-13 10:31] LABS: ALBUMIN 1.8 G/DL (3.4-5.0); ALBUMIN/GLOBULIN RATIO 0.7 (1.1-1.5); ALKALINE PHOSPHATASE 53 IU/L (46-116); ANION GAP 3 (8-16); ASPARTATE AMINO TRANSFERASE 13 U/L (10-37); BILIRUBIN,TOTAL 0.2 MG/DL (0.1-1.0); BLOOD UREA NITROGEN 9 MG/DL (7-18); CALCIUM 7.8 MG/DL (8.5-10.1); CHLORIDE 100 MMOL/L (99-107); CREATININE 0.69 MG/DL (0.40-0.90); GLUCOSE 168 MG/DL (70-104); POTASSIUM 4.1 MMOL/L (3.5-5.1); SODIUM 133 MMOL/L (135-145); TOTAL PROTEIN 4.5 G/DL (6.4-8.2); eCRCL 55 ML/MIN; eGFR 81 ML/MIN
[2023-04-13 10:34] LABS: ALANINE AMINOTRANSFERASE < 6 U/L (12-78)
[2023-04-13 11:05] LABS: ANISOCYTOSIS 3+; HYPERSEGMENTED NEUTROPHILS 2+; HYPOCHROMASIA 1+; MICROCYTOSIS 1+; PLATELET ESTIMATE INCREASED; TOTAL CELLS COUNTED 100
[2023-04-13 11:07] LABS: BURR CELLS FEW; ELLIPTOCYTES 2+; POLYCHROMASIA FEW; SCHISTOCYTES FEW; TEAR DROP CELLS FEW
--- NOTE | 2023-04-13 13:00 | NUR ---
ADELINA WASTED IN LIQUID WASTED WITH RN WITNESS. TOO SOON TO ADMINISTER. NOTIFIED PRIMARY RN
[2023-04-13 18:00] VITALS: BP 136/70; PULSE 65; RESP 16; TEMP 97.8; O2SAT 98
--- NOTE | 2023-04-13 18:28 | NUR ---
Problems reprioritized. Patient report given, questions answered & plan of care reviewed with JESÚS Bautista.
--- NOTE | 2023-04-13 18:37 | NUR ---
Patient in room ORTHO 4018. I have received report from KARYNA DAVILA and had the opportunity to ask questions and assume patient care.
[2023-04-13 20:00] VITALS: RESP 17; O2SAT 98
[2023-04-13] MEDS: enoxaparin 40mg/0.4ml syringe SQ SCH (21:06)
[2023-04-13] MEDS: insulin glargine (Lantus) pen - multi-dose SQ SCH (21:08)
[2023-04-13 22:00] VITALS: BP 145/70; PULSE 75; RESP 17; TEMP 97.7; O2SAT 98
[2023-04-14 06:00] VITALS: BP 156/63; PULSE 72; RESP 15; TEMP 97.9; O2SAT 99
--- NOTE | 2023-04-14 06:20 | NUR ---
Patient in room ORTHO 4018. I have received report from Lily ESPINOSA and had the opportunity to ask questions and assume patient care.
--- NOTE | 2023-04-14 06:30 | NUR ---
Problems reprioritized. Patient report given, questions answered & plan of care reviewed with MARIE DAVILA.
[2023-04-14] MEDS: CefTRIAXone 2gm/D5W 50ml BAG 50 ML IV SCH (07:04)
[2023-04-14 08:00] VITALS: RESP 15; O2SAT 99
[2023-04-14] MEDS: clindamycin 1% topical susp 60ml bottle TP SCH (08:00)
[2023-04-14] MEDS: K and/or MAG REPLACEMENT MC SCH (08:00)
[2023-04-14] MEDS: clopidogrel 75mg tablet PO SCH (09:06)
[2023-04-14] MEDS: pantoprazole 40mg Tablet.DR PO SCH (09:06)
[2023-04-14] MEDS: aspirin 81mg, enteric-coated 1 TAB TABLET.DR PO SCH (09:06)
[2023-04-14] MEDS: lactobacillus rhamnosus 10,000 MMU CELLS/CAPSULE PO SCH (09:06)
[2023-04-14] MEDS: levoTHYROXINE 112mcg tablet PO SCH (09:07)
[2023-04-14] MEDS: NYSTATIN CREAM - 30GM TUBE TP SCH (09:08)
[2023-04-14] MEDS: HYDROcodone/acetaminophen 10/325mg tab PO PRN (09:58)
[2023-04-14 10:00] VITALS: BP 126/63; PULSE 67; RESP 12; TEMP 98.2; O2SAT 98
--- NOTE | 2023-04-14 11:00 | NUR ---
I have reviewed and agree with interventions, assessments, and documentation by Laurie Conklin LVN.
--- NOTE | 2023-04-14 11:06 | NUR ---
Patient discharged home today. Patient IV removed by RN. All patient discharged instructions were explained and all questions were answered. All belongings were gathered and sent with patient. Patient was alert and appropriate for discharge. Patient was picked up by CAT personnel. Patient was taken downstairs by CAT personnel and loaded into CAT vehicle.
== END 2023-04-14 11:10 | disposition home health service (06) | DRG 698 ==
LOC: ER 21:56 → ED HOLD 04-04 04:07 → ORTHO 4S 04-04 09:50
PROVIDERS: ADMIT Family Medicine; ATTEND Family Medicine
PROC: 05HY33Z Insertion of Infusion Device into Upper Vein, Percutaneous Approach (ICD-10-PCS; principal; 2023-04-04)
DX: T83.511A Infection and inflammatory reaction due to indwelling urethral catheter, initial encounter (principal); A41.9 Sepsis, unspecified organism; G93.41 Metabolic encephalopathy; E87.1 Hypo-osmolality and hyponatremia; D47.1 Chronic myeloproliferative disease; I50.32 Chronic diastolic (congestive) heart failure; Z16.24 Resistance to multiple antibiotics; N39.0 Urinary tract infection, site not specified; D45 Polycythemia vera; K21.9 Gastro-esophageal reflux disease without esophagitis; I11.0 Hypertensive heart disease with heart failure; F41.1 Generalized anxiety disorder; E11.51 Type 2 diabetes mellitus with diabetic peripheral angiopathy without gangrene; E11.42 Type 2 diabetes mellitus with diabetic polyneuropathy; E03.9 Hypothyroidism, unspecified; I25.10 Atherosclerotic heart disease of native coronary artery without angina pectoris; F32.A Depression, unspecified; M19.90 Unspecified osteoarthritis, unspecified site; L89.152 Pressure ulcer of sacral region, stage 2; D75.839 Thrombocytosis, unspecified; R16.1 Splenomegaly, not elsewhere classified; Y83.8 Other surgical procedures as the cause of abnormal reaction of the patient, or of later complication, without mention of misadventure at the time of the procedure; Y92.89 Other specified places as the place of occurrence of the external cause; Z79.899 Other long term (current) drug therapy; Z91.018 Allergy to other foods; Z91.013 Allergy to seafood; Z88.1 Allergy status to other antibiotic agents; Z91.041 Radiographic dye allergy status; Z88.8 Allergy status to other drugs, medicaments and biological substances; Z86.718 Personal history of other venous thrombosis and embolism; Z86.711 Personal history of pulmonary embolism; Z87.440 Personal history of urinary (tract) infections; Z90.710 Acquired absence of both cervix and uterus; Z79.82 Long term (current) use of aspirin; Z98.62 Peripheral vascular angioplasty status; Z86.73 Personal history of transient ischemic attack (TIA), and cerebral infarction without residual deficits; Z87.891 Personal history of nicotine dependence; Z79.4 Long term (current) use of insulin
CPT/HCPCS: 36410; 36415; 70450; 71045; 74176; 76937; 80053; 81001; 82948; 83036; 83540; 83550; 83605; 83735; 84145; 84443; 84484; 85007; 85008; 85025; 85379; 85610; 85730; 86140; 87040; 87077; 87081; 87088; 87186; 92508; 92616; 93005; 97161; 97530; 99285; A4314; A5200; A6209; A6212; A6213; A6234; A6250; A6258; A6449; C1751; G0378; J0696; J1170; J1650; J1815; J2185; J2405; J3475; J3490; J7030